=== PATIENT | male | born 1960 | race Caucasian/White ===

== ENCOUNTER → 2017-06-26 | Outpatient (CLI) | payer OTHER, BC ==
--- NOTE | 2017-06-26 15:23 | REP ---
HISTORY: Pain after trauma. COMPARISON: None. FINDINGS: The joint spaces are symmetric and relatively well maintained. There is no evidence of acute fracture or destructive osseous lesion. IMPRESSION: Negative. Signed by Monroe Sanchez DO 06/26/2017 04:49 P
== END ==
LOC: M WUC 12:28
PROVIDERS: ATTEND Physician Assistant
DX: S97.81XA Crushing injury of right foot, initial encounter (principal); Y92.89 Other specified places as the place of occurrence of the external cause; Y99.0 Civilian activity done for income or pay; X58.XXXA Exposure to other specified factors, initial encounter

== ENCOUNTER → 2017-07-01 | Outpatient (CLI) | payer BC ==
[2017-07-01 13:33] LABS: ALBUMIN 4.2 GM/DL (3.2-5.2); ALBUMIN/GLOBULIN RATIO 1.35 (1.00-1.93); ALKALINE PHOSPHATASE 87 U/L (45-117); ALT/SGPT 114 U/L (12-78); ANION GAP 12 MEQ/L (8-16); AST/SGOT 46 U/L (15-37); BILIRUBIN,TOTAL 0.6 MG/DL (0.2-1.0); BLOOD UREA NITROGEN 15 MG/DL (7-18); CARBON DIOXIDE LEVEL 23 MEQ/L (21-32); CHLORIDE LEVEL 103 MEQ/L (98-107); CREATININE FOR GFR 0.95 MG/DL (0.70-1.30); GLOMERULAR FILTRATION RATE > 60.0 (>56); GLUCOSE, FASTING 91 MG/DL (70-105); POTASSIUM SERUM 4.2 MEQ/L (3.5-5.1); SODIUM LEVEL 138 MEQ/L (136-145); TOTAL PROTEIN 7.3 GM/DL (6.4-8.2)
== END ==
LOC: M WUC 09:33
PROVIDERS: ATTEND Internal Medicine Cardiovascular Disease
DX: R94.5 Abnormal results of liver function studies (principal)

== ENCOUNTER 2018-09-03 08:01 | Emergency (ER) | payer OTHER, BC ==
[2018-09-03] MEDS: IBUPROFEN 800 MG TAB PO (09:07)
[2018-09-03] MEDS: NORCO, ANEXSIA 5/325MG TABLET (HYDROcodone/ACETAMINOPHEN) PO (09:08)
[2018-09-03] MEDS: ADACEL/BOOSTRIX VACCINE (DIPHTH/PERTUSS/ACELL/TETANUS)0.5ML SYR (90715) IM (09:09)
== END 2018-09-03 09:20 | disposition home or self-care (01) ==
LOC: M ED 08:01
DX: S40.011A Contusion of right shoulder, initial encounter (principal); W18.09XA Striking against other object with subsequent fall, initial encounter; Y92.89 Other specified places as the place of occurrence of the external cause
CPT/HCPCS: 90715

== ENCOUNTER → 2019-01-19 | Outpatient (REF) | payer OTHER ==
[~2019-01-19] MED LIST: ALLE180T33 PO; ASCO25TA PO; ATOR40TA75; GLUC1CAP9 PO; IBUP80TA PO; LISI10TA4; MULTCAP PO; NORCOTAB PO; OMEP20CA3; RANI1TAB38 PO; ZETI10TA30 PO
[2019-01-19 13:23] LABS: HEMATOCRIT 47.6 % (42.0-52.0); HEMOGLOBIN 16.9 g/dl (13.5-17.5); MEAN CORPUSCULAR HEMOGLOBIN 32.3 pg (27.0-33.0); MEAN CORPUSCULAR HGB CONC 35.5 g/dl (32.0-36.5); MEAN CORPUSCULAR VOLUME 90.8 fl (80.0-96.0); PLATELET COUNT, AUTOMATED 213 10^3/uL (150-450); RED BLOOD COUNT 5.24 10^6/uL (4.30-6.10); WHITE BLOOD COUNT 8.4 10^3/uL (4.0-10.0)
[2019-01-19 13:39] LABS: INR 0.94; PROTHROMBIN TIME 12.7 SECONDS (12.1-14.4)
[2019-01-19 13:40] LABS: PARTIAL THROMBOPLASTIN TIME 26.4 SECONDS (25.4-37.6)
[2019-01-19 13:52] LABS: BLOOD UREA NITROGEN 9 MG/DL (7-18); CALCIUM LEVEL 9.2 MG/DL (8.5-10.1); CARBON DIOXIDE LEVEL 29 MEQ/L (21-32); CHLORIDE LEVEL 99 MEQ/L (98-107); CREATININE FOR GFR 0.88 MG/DL (0.70-1.30); GLOMERULAR FILTRATION RATE > 60.0 (>56); GLUCOSE, FASTING 101 MG/DL (70-100); POTASSIUM SERUM 4.7 MEQ/L (3.5-5.1); SODIUM LEVEL 135 MEQ/L (136-145)
== END ==
LOC: M SFHCPLAZ 11:01
PROVIDERS: ATTEND Physician Assistant
DX: Z01.818 Encounter for other preprocedural examination (principal)

== ENCOUNTER 2019-06-09 17:03 | Inpatient (IN) | payer BC, OTHER ==
[~2019-06-09] VITALS: Ht 175.3 cm; Wt 97.1 kg
[~2019-06-09 17:03] MED LIST changes: -ASCO25TA PO; +HYDR-3715 PO; -LISI10TA4; +LISI10TA4 PO; -NORCOTAB PO; -OMEP20CA3; +OMEP20CA4; +VITA1TAB23 PO
[2019-06-09] MEDS ORDERED: NS 1,000 ML IV SCH (18:00)
[2019-06-09] MEDS ORDERED: OMEP-221 PO (18:10)
[2019-06-09] MEDS ORDERED: CENT1TAB PO (18:10)
[2019-06-09] MEDS ORDERED: ROSU40TA4 PO (18:13)
[2019-06-09] MEDS ORDERED: GARL500C PO (18:13)
[2019-06-09] MEDS ORDERED: IBUP-1091 PO (18:13)
--- NOTE | 2019-06-09 18:40 | REPVR ---
EXAM: US Abdomen Limited, Right Upper Quadrant EXAM DATE/TIME: 06/09/2019 6:17 PM CLINICAL HISTORY: 58 years old, male; Abdominal pain; Epigastric; Additional info: Abd pain elevated bili ? cbd stone TECHNIQUE: Imaging protocol: Real-time ultrasound of the abdomen with image documentation. Examination was focused on the right upper quadrant. COMPARISON: No relevant prior studies available. FINDINGS: Liver: The liver is diffusely echogenic relative to the right kidney, findings consistent with steatosis. Gallbladder: Normal. No gallstones. There is no gallbladder wall thickening. Common bile duct: Common bile that measures 8.1 mm Pancreas: Limited due to overlying bowel gas. Visualized segments of the pancreas are unremarkable. Right kidney: Right kidney measures 11.7 x 5.7 x 5.7 cm. IMPRESSION: 1. Hepatic steatosis. 2. No acute findings. Electronically signed by: Kelby Denson On 06/09/2019 18:39:57 PM
--- NOTE | 2019-06-09 19:36 | ECGEPIP ---
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
[2019-06-09] MEDS ORDERED: DEXTROSE 50% 50 ML SYRINGE IV PRN (20:45)
[2019-06-09] MEDS ORDERED: GLUCOSE 4 GM CHEW TABLET PO PRN (20:45)
[2019-06-09] MEDS ORDERED: GLUCAGON FOR INJ 1 MG VIAL (J1610) SC PRN (20:45)
--- NOTE | 2019-06-09 20:47 | HPEPDOC ---
General Date of Admission 06.09.19 Date of Service: Jun 09, 2019 Chief Complaint The patient is a 58-year-old male admitted with a reason for visit of Abdominal Pain. History of Present Illness 58m with hx of htn, hld, GERD p/w abdominal pain. Pt states he has had this pain in the past. But for the past two days he has had epigastric pain particularly after eating. This has been associated with nausea as well. He saw his PMD today who notes that he was jaundice. Labs were drawn that revealed t bili 8, ast/alt ~ 200, alk phos ~250, glucose ~250. A CT was done as well without any clear pathology but was of low quality as he was unable to raise his right arm. a full ROS was performed and negative except as documented above Home Medications Scheduled Fexofenadine HCl (Lesia Allergy) 180 Mg Tab, 180 MG PO DAILY, (Reported) Garlic (Garlic) 500 Mg Capsule, 1,000 MG PO DAILY, (Reported) Lisinopril (Lisinopril) 10 Mg Tab, 10 MG PO DAILY, (Reported) Multivit-Min/FA/Lycopen/Lutein (Centrum Silver Tablet) 1 Each Tablet, 1 TAB PO D AILY, (Reported) Omeprazole (Omeprazole) 40 Mg Capsule.dr, 40 MG PO DAILY, (Reported) Rosuvastatin Calcium (Rosuvastatin Calcium) 40 Mg Tablet, 40 MG PO DAILY, (Reported) Scheduled PRN Ibuprofen (Ibuprofen) 200 Mg Tablet, 600 MG PO PRN PRN for PAIN, (Reported) Allergies Coded Allergies: No Known Allergies (Unverified , 06/09/19) Past Medical History Medical History as above Surgical History recent shoulder surgery Social History * Smoker: Denies Alcohol: heavy Drugs: denies A-FIB/CHADSVASC A-FIB History Current/History of A-Fib/PAF?: No Current PO Anticoag Therapy: No Age/Risk Factor Scoring CHADSVASC: CHADSVASC Response (Comments) Value Age Risk Factor Age < 65 years old 0 Gender Risk Factor Male 0 Hx of CHF No 0 Hx of HTN Yes 1 Hx of Stroke/TIA/or VTE No 0 Hx of Diabetes No 0 Hx of Vascular Disease No 0 Total 1 Treatment Treatment ordered: NONE Physical Examination General Exam: Positive: Alert, No Acute Distress Eye Exam: Positive: PERRLA, Conjunctiva & lids normal, EOMI; Negative: Sclera icteric ENT Exam: Positive: Atraumatic, Mucous membr. moist/pink, Pharynx Normal Neck Exam: Positive: Supple; Negative: JVD, thyromegaly Chest Exam: Positive: Clear to auscultation, Normal air movement Heart Exam: Positive: Rate Normal, Regular Rhythm, Normal S1, Normal S2; Negative: Murmurs, Rubs Abdomen Exam: Positive: BS Hypoactive, Soft; Negative: Tenderness Extremity Exam: Positive: Normal pulses; Negative: Clubbing, Cyanosis, Edema Skin Exam: Positive: Nl turgor and temperature; Negative: Breakdown, Lesion Neuro Exam: Positive: Normal Gait, Normal Speech, Cranial Nerves 3-12 NL, Reflexes 2+ Psych Exam: Positive: Mental status NL, Mood NL, Oriented x 3 Vital Signs Vital Signs Date Time Temp Pulse Resp B/P (MAP) Pulse Ox O2 Delivery O2 Flow Rate FiO2 06/09/19 19:34 108/80 (89) 06/09/19 17:03 97.5 109 18 97 Room Air Laboratory Data Labs 24H Laboratory Tests 2 06/09/19 18:23: Lipase 709H Assessment/Plan 58m p/w obstructive jaundice and pancreatitis? npo iv fluids no evidence of cholecystitis cbd 8mm possible distal stone? ERCP in am Dr Enamorado aware of case htn lisinopril on hold monitor bps hld continue crestor gerd continue protonix hyperglycemia will check a1c fingersticks and sliding scale in meantime etoh use ciwa protocol Plan / VTE VTE Prophylaxis Ordered?: Yes JOSE RÍOS MD Jun 09, 2019 20:47
[2019-06-09] MEDS ORDERED: LORazepam 2 MG TAB PO PRN (21:00)
[2019-06-09 22:41] VITALS: BP 123/81
[2019-06-09 23:00] VITALS: BP 123/81
[2019-06-09] MEDS: LR 1,000 ML IV SCH (23:09)
[2019-06-10 06:00] VITALS: BP 122/73
[2019-06-10] MEDS: HumaLOG INSULIN (NovoLOG) PER UNIT SC SCH ×4 (06:00→18:00)
[2019-06-10] MEDS: LR 1,000 ML IV SCH ×3 (06:00→09:51)
[2019-06-10 06:29] LABS: HEMATOCRIT 35.8 % (42.0-52.0); HEMOGLOBIN 12.8 g/dl (13.5-17.5); MEAN CORPUSCULAR HEMOGLOBIN 32.6 pg (27.0-33.0); MEAN CORPUSCULAR HGB CONC 35.8 g/dl (32.0-36.5); MEAN CORPUSCULAR VOLUME 91.1 fl (80.0-96.0); PLATELET COUNT, AUTOMATED 162 10^3/uL (150-450); RED BLOOD COUNT 3.93 10^6/uL (4.30-6.10); WHITE BLOOD COUNT 8.4 10^3/uL (4.0-10.0)
[2019-06-10 06:47] LABS: HEMOGLOBIN A1c 9.5 %
[2019-06-10 07:00] VITALS: BP 122/73
[2019-06-10 07:05] LABS: ALBUMIN 2.5 GM/DL (3.2-5.2); ALT/SGPT 279 U/L (12-78); BILIRUBIN,TOTAL 7.1 MG/DL (0.2-1.0); BLOOD UREA NITROGEN 10 MG/DL (7-18); CALCIUM LEVEL 8.1 MG/DL (8.5-10.1); CARBON DIOXIDE LEVEL 28 MEQ/L (21-32); CHLORIDE LEVEL 102 MEQ/L (98-107); CREATININE FOR GFR 0.85 MG/DL (0.70-1.30); GLOMERULAR FILTRATION RATE > 60.0 (>56); GLUCOSE, FASTING 168 MG/DL (70-100); LIPASE 612 U/L (73-393); POTASSIUM SERUM 3.7 MEQ/L (3.5-5.1); SODIUM LEVEL 137 MEQ/L (136-145); TOTAL PROTEIN 6.4 GM/DL (6.4-8.2)
[2019-06-10] MEDS ORDERED: ROSUVASTATIN 10 MG TAB (CRESTOR) PO SCH (09:00)
[2019-06-10] MEDS: PANTOPRAZOLE 40MG INJ (PROTONIX) (C9113) IV SCH (09:24)
[2019-06-10] MEDS: HEPARIN SOD (PORCINE) 5000 UNITS/ML VIAL SC SCH ×2 (09:24→20:10)
[2019-06-10 11:20] LABS: HEPATITIS A ANTIBODY IGM NEGATIVE (NEGATIVE); HEPATITIS B CORE ANTIBODY IGM NEGATIVE (NEGATIVE); HEPATITIS B SURFACE ANTIGEN NEGATIVE (NEGATIVE); HEPATITIS C VIRUS ABY INDEX 0.3 INDEX (<0.8)
[2019-06-10 14:00] VITALS: BP 132/94
--- NOTE | 2019-06-10 18:42 | IPNPDOC ---
Text Note Date of Service The patient was seen on 06/10/19. NOTE Mr. Hernandez is admitted with onset of jaundice. It is accompanied by abdominal d iscomfort and greatly decreased appetite. He also complains of bloating and distention. Question was raised of possible obstructive jaundice, or gallstone pancreatitis. Physical exam Vital signs: Please see below. HEENT: Sclera are anicteric and noninjected, neck is supple with no adenopathy or thyromegaly, I do not note mucosal icterus. Cardiovascular: Regular rate and rhythm with a normal S1 and S2. No appreciable murmur. Respiratory: Generally clear to auscultation with good air movement, no wheezing or cough. Abdomen: Distended, there is some mild epigastric tenderness to palpation, I do not elicit Elliott's sign, bowel tones are present. I do not appreciate a fluid wave consistent with ascites. Extremities: do not show remarkable peripheral edema or lesions. Neuro: Patient does not display any focal neuromotor or sensory deficit, he does not have a tremor. Psych: Patient has a very depressed affect and often states he doesn't know the answer to certain questions such as what are his home medications or how long has he been taking them Skin: Patient does have notable jaundice to his trunk and head and legs ASSESSMENT/PLAN: 1. Jaundice--reported to be obstructive. Ultrasound not quite consistent with duct dilatation or cholecystitis. Case discussed with GI service; will get MRCP before thinking of pursuing ERCP. Patient has been ruled out for acute or chronic hepatitis by serology. CT scan result is consistent with fatty liver disease. We will need to consider alcoholic liver disease/acute alcoholic hepatitis; he has not shown symptoms of alcohol toxicity or withdrawal. I could not elicit from the patient any details regarding his medications, but I have stopped his Crestor and metformin for now in consideration of medication toxicity. 2. Acute pancreatitis--characterized by abdominal pain and elevated lipase. Gallstone pancreatitis is considered. We will await MRCP result. Otherwise, we will continue with conservative management. Patient relates increased discomfort with eating. VS,Fishbone, I+O VS, Fishbone, I+O Laboratory Tests 06/10/19 06:15 Red Blood Count 3.93 L, Mean Corpuscular Volume 91.1, Mean Corpuscular Hemoglobin 32.6, Mean Corpuscular Hemoglobin Concent 35.8, Red Cell Distribution Width 11.7, Calcium Level 8.1 L, Aspartate Amino Transf (AST/SGOT) 264 H, Alanine Aminotransferase (ALT/SGPT) 279 H, Alkaline Phosphatase 170 H, Total Bilirubin 7.1 H, Total Protein 6.4, Albumin 2.5 L Vital Signs Date Time Temp Pulse Resp B/P (MAP) Pulse Ox O2 Delivery O2 Flow Rate FiO2 06/10/19 14:00 98.1 74 17 132/94 (107) 96 06/09/19 21:28 Room Air I&O- Last 24 Hours up to 6 AM 06/10/19 06:00 Intake Total 1450 ml Output Total 300 ml Balance 1150 ml CHAVO HOGAN MD Jun 10, 2019 18:42
[2019-06-10 20:59] LABS: IRON (FE) 79 UG/DL (65-175); PERCENT SATURATION 33.3 % (19.7-50.0); TOTAL IRON BINDING CAPACITY 237 UG/DL (250-450)
--- NOTE | 2019-06-10 21:29 | CR ---
DATE OF CONSULTATION: 06/10/2019 STATUS OF PATIENT: Inpatient. REQUESTING PHYSICIAN: Hospitalist service. REASON FOR CONSULTATION: Jaundice. The patient is a 58-year-old male who was seen by is primary care physician for vague abdominal pain on 06/09/2019 when he was found to have an elevated bilirubin. He was sent for a CT scan of the abdomen and pelvis which was performed at [facility], but I do not have the results. The patient was asked to present to [facility] for further evaluation of his jaundice. The ultrasound on presentation in the emergency room reveals a fatty liver but no other abnormalities, namely his bile duct is normal in size and his gallbladder is free of stones, and it is normal in appearance as well. He did have a total bilirubin of 7.1 with moderate transaminitis. He is also found to have a diminished albumin level and mildly elevated lipase level. The patient was admitted for further evaluation. He currently denies any abdominal pain. No further nausea, and he actually feels okay. He denies any fevers, chills. There is no history of any recent antibiotic, such as penicillins or sulfa medications. All of his baseline medications are the usual medications and nothing new has been recently added. The only recent development was shoulder surgery in January of 2019, but no other surgeries or any unusual events or exposures are noted. PAST MEDICAL HISTORY: Hypertension. Hypercholesterolemia. Gastroesophageal reflux. MEDICATIONS AT HOME: - fexofenadine - lisinopril - omeprazole - rosuvastatin ALLERGIES: No known drug allergies. SOCIAL HISTORY: Positive for at least 2-3 alcoholic beverages per day with at least 5-6 and sometimes more alcoholic beverages on the weekends on a daily basis. He does not consider himself an alcoholic but he does drink daily. Negative for intravenous (IV) drug use. He works for the [employer]. REVIEW OF SYSTEMS: General: Negative for night sweats, fevers or chills. Positive for darkening of his urine for 1 week. Pulmonary: Negative for hemoptysis, pleuritic-type chest pain. Cardiac: Negative for orthopnea, paroxysmal nocturnal dyspnea (PND). Gastrointestinal (GI): As per HPI. Genitourinary (): Negative for hematuria, dysuria. Positive for darkening of urine times 1 week. Neurological: Negative for focal numbness or weakness or gait instability. PHYSICAL EXAMINATION: Temperature 98.1, pulse is 74, respiratory rate 17, blood pressure 132/94, pulse oximetry 96% on room air. General: He is awake, alert and oriented times three, in no acute distress. He is nontoxic in appearance. He is mildly jaundiced. His body habitus is moderately obese. Head, eyes, ears, nose and throat: Grossly without abnormality except for scleral icterus. Neck is supple. No lymphadenopathy, thyromegaly. Chest is clear bilaterally. Heart is regular rate and rhythm, S1, S2. No murmurs or gallops. Abdomen: Mildly tender in the epigastrium and over the liver on deep palpation only. No rebound tenderness. I do not appreciate definite ascites or shifting dullness. No masses are felt. Extremities: Negative for edema. Rectal: Examination has been deferred as per patient's request. LABORATORY WORK: Reveals a WBC 8.4, hemoglobin 12.8, hematocrit 35.8, platelet count is 162. Sodium 137, potassium 3.7, chloride 102, BUN 10, creatinine 0.85, glucose 168, total bilirubin 7.1, AST is 264, ALT 279, alkaline phosphatase 170, albumin 2.5, lipase 612. IMAGIN06/09/2019 gallbladder ultrasound; Impression: 1. Hepatic steatosis. 2. No acute findings. 3. The liver is diffusely echogenic relative to the right kidney. Findings are consistent with steatosis. The gallbladder is normal. No gallstones are seen. There is no gallbladder wall thickening. Common bile duct is measured at 8.1 mm. Visualized segments of the pancreas are unremarkable. 06/10/2019 Magnetic resonance cholangiopancreatography (MRCP): 1. There is no biliary ductal dilatation. Bile duct is measured between 5 and 6 mm at maximum. There are no gallstones seen in his gallbladder. Gallbladder is normal in appearance. The pancreas and pancreatic ducts are both normal. Impression: 1. Mixed pattern abnormal liver enzymes with moderate transaminitis intrahepatic cholestasis. Differenial includes meds/alcohol/toxic, immune/idiosyncratic, infectious RECOMMENDATIONS: 1. Check BENJI, AMA, ANCA, anti-LKM antibody, iron and ceruloplasmin, as well as hemochromatosis panel. I see that his viral hepatitis A, B, C panel is negative. would add EBV 2. I would also recommend that we do a CT abdomen and pelvis with IV and oral contrast to assess portal vasculature and r/o other anatomic causes. 3. Monitor Coags daily along with LFT MTDD
[2019-06-10 22:00] VITALS: BP 134/81
[2019-06-11] MEDS: LR 1,000 ML IV SCH ×5 (02:01→22:30)
[2019-06-11] MEDS: GASTROGRAFIN SOLUTION 30ML (Q9963) PO SCH ×2 (04:46→05:18)
[2019-06-11 06:00] VITALS: BP 140/73
[2019-06-11 06:03] LABS: INR 1.1; PROTHROMBIN TIME 13.9 SECONDS (11.8-14.0)
[2019-06-11 06:17] LABS: ALBUMIN 2.7 GM/DL (3.2-5.2); ALT/SGPT 313 U/L (12-78); BILIRUBIN,DIRECT 6.8 MG/DL (0.0-0.2); BILIRUBIN,TOTAL 8.9 MG/DL (0.2-1.0); BLOOD UREA NITROGEN 7 MG/DL (7-18); CALCIUM LEVEL 8.7 MG/DL (8.5-10.1); CARBON DIOXIDE LEVEL 29 MEQ/L (21-32); CHLORIDE LEVEL 104 MEQ/L (98-107); CREATININE FOR GFR 0.77 MG/DL (0.70-1.30); GAMMA GLUTAMYLTRANSPEPTIDASE 996 U/L (15-85); GLOMERULAR FILTRATION RATE > 60.0 (>56); GLUCOSE, FASTING 130 MG/DL (70-100); LIPASE 480 U/L (73-393); POTASSIUM SERUM 3.8 MEQ/L (3.5-5.1); SODIUM LEVEL 138 MEQ/L (136-145); TOTAL PROTEIN 6.2 GM/DL (6.4-8.2)
--- NOTE | 2019-06-11 08:09 | REP ---
MRCP examination: History: Rule out obstructive jaundice. Technique: Axial and coronal T2-weighted scans were obtained. MRCP exam is acquired and maximal intensity projection images are generated and viewed rotationally. MRCP findings: There is no evidence of intrahepatic biliary ductal dilation. The common bile duct measures 0.6 cm in greatest diameter on MRCP images. No biliary stricture is seen. Pancreatic duct is normal in caliber and appearance. No filling defect is seen in the gallbladder lumen. No pancreatic lesion is seen. There is no evidence of choledocholithiasis. Impression: Negative MRCP exam. Electronically Signed by Abdoulaye Johnston MD 06/11/2019 12:00 P
[2019-06-11] MEDS: PANTOPRAZOLE 40MG INJ (PROTONIX) (C9113) IV SCH (08:17)
[2019-06-11] MEDS: HEPARIN SOD (PORCINE) 5000 UNITS/ML VIAL SC SCH ×2 (08:18→20:15)
[2019-06-11] MEDS: HumaLOG INSULIN (NovoLOG) PER UNIT SC SCH ×4 (08:18→20:21)
--- NOTE | 2019-06-11 08:29 | REPVR ---
EXAM: CT Abdomen With Contrast EXAM DATE/TIME: 06/11/2019 5:59 AM CLINICAL HISTORY: 58 years old, male; Condition or disease; Liver condition; Other: Jaundice; Additional info: Eval portal vessels, jaundice, liver disease TECHNIQUE: Imaging protocol: Axial computed tomography images of the abdomen with intravenous contrast. Coronal and sagittal reformatted images were created and reviewed. Radiation optimization: All CT scans at this facility use at least one of these dose optimization techniques: automated exposure control; mA and/or kV adjustment per patient size (includes targeted exams where dose is matched to clinical indication); or iterative reconstruction. Contrast material: ISOVUE 370; Contrast volume: 100 ml; Contrast route: IV; COMPARISON: GALLBLADDER US 06/09/2019 6:00 PM FINDINGS: Lungs: There is mild atelectasis/scarring at the lung bases. Liver: The liver is fatty in density. It appears otherwise unremarkable. The portal and hepatic veins appear patent, as does the hepatic artery. This is a non-angiographic exam. Gallbladder and bile ducts: No gallstones are evident, but ultrasound would be more sensitive. No gross biliary ductal dilatation. Pancreas: Normal. No ductal dilation. Spleen: Normal. No splenomegaly. Adrenals: Normal. No mass. Kidneys and ureters: Normal. No hydronephrosis. Stomach and bowel: The small bowel is not obstructed. There is minor descending colonic diverticulosis without evidence for diverticulitis. The visualized large bowel is otherwise grossly unremarkable in appearance. Appendix: The appendix appears normal where at least partially visualized, and there is no inflammatory change in the region. Intraperitoneal space: Unremarkable. No free air. No significant fluid collection. Lymph nodes: Unremarkable. No enlarged lymph nodes. Vasculature: Coronary artery calcifications are noted. The abdominal aorta is nonaneurysmal. The left renal vein is noted to be retroaortic. Bones/joints: Degenerative changes involve the spine. Soft tissues: Unremarkable. IMPRESSION: 1. Fatty liver. 2. Patent portal and hepatic veins and hepatic artery. May consider Doppler interrogation for more detailed assessment. 3. Minor descending colonic diverticulosis without evidence for diverticulitis. Electronically signed by: José Hu On 06/11/2019 08:29:12 AM
[2019-06-11 14:00] VITALS: BP 138/60
--- NOTE | 2019-06-11 19:28 | IPNPDOC ---
Text Note Date of Service The patient was seen on 06/11/19. NOTE Mr. Bassett was admitted with onset of jaundice. He still complains of bloating and distention. He has mild abdominal pain and decreased appetite. The etiology of his jaundice is as yet unclear. Physical exam Vital signs: Please see below. HEENT: Sclera are anicteric and noninjected, neck is supple with no adenopathy or thyromegaly, I do not note mucosal icterus. Cardiovascular: Regular rate and rhythm with a normal S1 and S2. No appreciable murmur. Respiratory: Generally clear to auscultation with good air movement, no wheezing or cough. Abdomen: Distended, there is some mild epigastric tenderness to palpation, I do not elicit Elliott's sign, bowel tones are present. I do not appreciate a fluid wave consistent with ascites. Extremities: do not show remarkable peripheral edema or lesions. Neuro: Patient does not display any focal neuromotor or sensory deficit, he does not have a tremor. Psych: Patient has a very depressed affect Skin: Patient does have notable jaundice to his trunk and head and legs Radiologic review: Both CT scan with contrast and abdominal MRI show fatty liver. There is no finding of obstruction to the portal or hepatic veins or to the ducts. Laboratory review: See also below GGT is quite elevated at 996. AST and ALTs remain elevated and increased it to 98 and 313, respectively. Bilirubin has increased slightly to 8.9. There has been a decrease in lipase down to 480. ASSESSMENT/PLAN: 1. Jaundice--reported to be obstructive. Ultrasound not quite consistent with duct dilatation or cholecystitis. Case discussed with GI service; MRCP and CT scan with contrast do not show any obstruction to vessels or ducts. Patient has been ruled out for acute or chronic hepatitis by serology. CT scan result is consistent with fatty liver disease. We will need to consider alcoholic liver disease/acute alcoholic hepatitis; he has not shown symptoms of alcohol toxicity or withdrawal. I could not elicit from the patient any details regarding his medications, but I have stopped his Crestor and metformin for now in consideration of medication toxicity. 2. Acute pancreatitis--characterized by abdominal pain and elevated lipase. Gallstone pancreatitis is considered. MRCP is negative. We will continue with conservative management. Patient relates increased discomfort with eating. VS,Fishbone, I+O VS, Fishbone, I+O Laboratory Tests 06/11/19 05:32 Calcium Level 8.7, Aspartate Amino Transf (AST/SGOT) 298 H, Alanine Aminotransferase (ALT/SGPT) 313 H, Alkaline Phosphatase 179 H, Total Bilirubin 8.9 H, Direct Bilirubin 6.8 H, Total Protein 6.2 L, Albumin 2.7 L Vital Signs Date Time Temp Pulse Resp B/P (MAP) Pulse Ox O2 Delivery O2 Flow Rate FiO2 06/11/19 14:00 97.4 70 19 138/60 (86) 100 06/09/19 21:28 Room Air I&O- Last 24 Hours up to 6 AM 06/11/19 06:00 Intake Total 3600 ml Output Total 1000 ml Balance 2600 ml CHAVO HOGAN MD Jun 11, 2019 19:28
[2019-06-11 20:23] LABS: MONO REFLEX EBV COMP NEGATIVE (NEGATIVE)
[2019-06-11 22:00] VITALS: BP 145/77
[2019-06-12] MEDS: LR 1,000 ML IV SCH (05:16)
[2019-06-12 06:00] VITALS: BP 136/83
[2019-06-12 06:39] LABS: INR 1.16; PROTHROMBIN TIME 14.5 SECONDS (11.8-14.0)
[2019-06-12 06:53] LABS: ALBUMIN 2.4 GM/DL (3.2-5.2); ALT/SGPT 221 U/L (12-78); BILIRUBIN,TOTAL 5.7 MG/DL (0.2-1.0); BLOOD UREA NITROGEN 5 MG/DL (7-18); CALCIUM LEVEL 8.2 MG/DL (8.5-10.1); CARBON DIOXIDE LEVEL 31 MEQ/L (21-32); CHLORIDE LEVEL 108 MEQ/L (98-107); CREATININE FOR GFR 0.73 MG/DL (0.70-1.30); GLOMERULAR FILTRATION RATE > 60.0 (>56); GLUCOSE, FASTING 129 MG/DL (70-100); LIPASE 441 U/L (73-393); POTASSIUM SERUM 3.7 MEQ/L (3.5-5.1); SODIUM LEVEL 143 MEQ/L (136-145); TOTAL PROTEIN 5.7 GM/DL (6.4-8.2)
[2019-06-12] MEDS: HEPARIN SOD (PORCINE) 5000 UNITS/ML VIAL SC SCH ×2 (07:50→21:19)
[2019-06-12] MEDS: PANTOPRAZOLE 40MG INJ (PROTONIX) (C9113) IV SCH (07:50)
[2019-06-12] MEDS: HumaLOG INSULIN (NovoLOG) PER UNIT SC SCH ×4 (07:51→21:00)
[2019-06-12] MEDS ORDERED: IBUPROFEN 400 MG TAB PO PRN (10:30)
[2019-06-12 14:00] VITALS: BP 140/92
--- NOTE | 2019-06-12 17:08 | IPNPDOC ---
Text Note Date of Service The patient was seen on 06/12/19. NOTE This is a 58-year-old male admitted with elevated liver enzymes and jaundice of unclear etiology. He is starting to show some clinical improvement; he is now starting to tolerate an oral diet without discomfort. Physical exam Vital signs: Please see below. HEENT: Sclera are anicteric and noninjected, neck is supple with no adenopathy or thyromegaly, I do not note mucosal icterus. Cardiovascular: Regular rate and rhythm with a normal S1 and S2. No appreciable murmur. Respiratory: Generally clear to auscultation with good air movement, no wheezing or cough. Abdomen: Distended, there is some mild epigastric tenderness to palpation, I do not elicit Elliott's sign, bowel tones are present. I do not appreciate a fluid wave consistent with ascites. Extremities: do not show remarkable peripheral edema or lesions. Neuro: Patient does not display any focal neuromotor or sensory deficit, he does not have a tremor. Psych: Patient has a very depressed affect Skin: Patient has decreased jaundice to his trunk and head and legs Laboratory review: please also see below Lipase is 441 today. AST is decreased to 167, ALP is 221. Bilirubin is now decreased to 5.7. There is also glycated hemoglobin of 9.5. ASSESSMENT/PLAN: 1. Jaundice--etiology is still unclear, but patient is improving. Reported to be obstructive. Ultrasound not quite consistent with duct dilatation or cholecystitis. Case discussed with GI service; MRCP and CT scan with contrast do not show any obstruction to vessels or ducts. Patient has been ruled out for acute or chronic hepatitis by serology. CT scan result is consistent with fatty liver disease. We will need to consider alcoho lic liver disease/acute alcoholic hepatitis; he has not shown symptoms of alcohol toxicity or withdrawal. I could not elicit from the patient any details regarding his medications, but I have stopped his Crestor and metformin for now in consideration of medication toxicity. Appreciate assistance and input from the GI service. 2. Acute pancreatitis--characterized by abdominal pain and elevated lipase. MRCP is negative. We will continue with conservative management. Patient appetite and tolerance of diet is improving. 3. Rue-jwsfdom-rylghodsk diabetes mellitus--this is a new diagnosis for the patient based on his glycated hemoglobin of 9.5. Patient will need education regarding glucose management, weight loss and lifestyle changes. VS,Delores, I+O VS, Fishbone, I+O Laboratory Tests 06/12/19 05:59 Calcium Level 8.2 L, Aspartate Amino Transf (AST/SGOT) 167 H, Alanine Aminotransferase (ALT/SGPT) 221 H, Alkaline Phosphatase 179 H, Total Bilirubin 5.7 H, Total Protein 5.7 L, Albumin 2.4 L Vital Signs Date Time Temp Pulse Resp B/P (MAP) Pulse Ox O2 Delivery O2 Flow Rate FiO2 06/12/19 14:00 97.6 80 19 140/92 (108) 100 06/09/19 21:28 Room Air I&O- Last 24 Hours up to 6 AM 06/12/19 05:59 Intake Total 5440 ml Output Total 1200 ml Balance 4240 ml CHAVO HOGAN MD Jun 12, 2019 17:08
[2019-06-13 06:00] VITALS: BP 145/87
[2019-06-13 06:13] LABS: INR 1.17; PROTHROMBIN TIME 14.6 SECONDS (11.8-14.0)
[2019-06-13 06:36] LABS: ALBUMIN 2.3 GM/DL (3.2-5.2); ALT/SGPT 229 U/L (12-78); BILIRUBIN,TOTAL 4.2 MG/DL (0.2-1.0); BLOOD UREA NITROGEN 5 MG/DL (7-18); CALCIUM LEVEL 8.5 MG/DL (8.5-10.1); CARBON DIOXIDE LEVEL 28 MEQ/L (21-32); CHLORIDE LEVEL 107 MEQ/L (98-107); CREATININE FOR GFR 0.68 MG/DL (0.70-1.30); GLOMERULAR FILTRATION RATE > 60.0 (>56); GLUCOSE, FASTING 129 MG/DL (70-100); LIPASE 321 U/L (73-393); POTASSIUM SERUM 3.7 MEQ/L (3.5-5.1); SODIUM LEVEL 142 MEQ/L (136-145); TOTAL PROTEIN 6.1 GM/DL (6.4-8.2)
[2019-06-13] MEDS: PANTOPRAZOLE 40MG INJ (PROTONIX) (C9113) IV SCH (08:20)
[2019-06-13] MEDS: HEPARIN SOD (PORCINE) 5000 UNITS/ML VIAL SC SCH ×2 (08:21→20:53)
[2019-06-13] MEDS: HumaLOG INSULIN (NovoLOG) PER UNIT SC SCH ×4 (08:22→20:47)
[2019-06-13 14:00] VITALS: BP 148/88
--- NOTE | 2019-06-13 19:04 | IPNPDOC ---
Text Note Date of Service The patient was seen on 06/13/19. NOTE This is a 58-year-old male admitted with elevated liver enzymes, pancreatitis and jaundice of unclear etiology. He is starting to show some clinical improvement; he is now starting to tolerate an oral diet without discomfort. He is also found to have a new diagnosis of [id number] diabetes mellitus. Physical exam Vital signs: Please see below. HEENT: Sclera are anicteric and noninjected, neck is supple with no adenopathy or thyromegaly, I do not note mucosal icterus. Cardiovascular: Regular rate and rhythm with a normal S1 and S2. No appreciable murmur. Respiratory: Generally clear to auscultation with good air movement, no wheezing or cough. Abdomen: Mildly distended, there is some mild epigastric tenderness to palpation, I do not elicit Elliott's sign, bowel tones are present. I do not appreciate a fluid wave consistent with ascites. Extremities: do not show remarkable peripheral edema or lesions. Neuro: Patient does not display any focal neuromotor or sensory deficit, he does not have a tremor. Psych: Patient has a very depressed affect Skin: Patient has decreased jaundice to his trunk and head and legs Laboratory review: please also see below Lipase is normalized to 321. AST is 195, ALT is 229. Bilirubin is now decreased to 4.2. Pending studies include hemachromatosis DNA, EBV panel, BENJI screen, p- ANCA and c-ANCA antibody, antimitochondrial antibody, liver/kidney microsomal titer, tissue trans-glutaminase IgA antibody ASSESSMENT/PLAN: 1. Jaundice--etiology is still unclear, but patient is improving. Reported to be obstructive. Ultrasound not quite consistent with duct dilatation or cholecystitis. Case discussed with GI service; MRCP and CT scan with contrast do not show any obstruction to vessels or ducts. Patient has been ruled out for acute or chronic hepatitis by serology. CT scan result is consistent with fatty liver disease. We will need to consider alcoholic liver disease/acute alcoholic hepatitis; he has not shown symptoms of alcohol toxicity or withdrawal. I could not elicit from the patient any details regarding his medications, but I have stopped his Crestor and metformin for now in consideration of medication toxicity. Appreciate assistance and input from the GI service. 2. Acute pancreatitis--characterized by abdominal pain and elevated lipase. MRCP is negative. We will continue with conservative management. Patient appetite and tolerance of diet is improving. 3. Qbe-krkfxgl-rtvghkqrg diabetes mellitus--this is a new diagnosis for the patient based on his glycated hemoglobin of 9.5. Patient will need education regarding glucose management, weight loss and lifestyle changes. I have also requested a dietary consult. Recommend starting him on an oral agent; I have started glipizide as it does not have significant hepatic effects. VS,Fishbone, I+O VS, Fishbone, I+O Laboratory Tests 06/13/19 05:36 Calcium Level 8.5, Aspartate Amino Transf (AST/SGOT) 195 H, Alanine Aminotransferase (ALT/SGPT) 229 H, Alkaline Phosphatase 173 H, Total Bilirubin 4.2 H, Total Protein 6.1 L, Albumin 2.3 L Vital Signs Date Time Temp Pulse Resp B/P (MAP) Pulse Ox O2 Delivery O2 Flow Rate FiO2 06/13/19 14:00 96.8 67 20 148/88 (108) 97 06/09/19 21:28 Room Air I&O- Last 24 Hours up to 6 AM 06/13/19 06:00 Intake Total 3900 ml Output Total 1000 ml Balance 2900 ml CHAVO HOGAN MD Jun 13, 2019 19:04
[2019-06-13 22:00] VITALS: BP 142/91
[2019-06-13 22:19] VITALS: BP 142/82
[2019-06-14 06:00] VITALS: BP 149/90
[2019-06-14 06:04] LABS: ALBUMIN 2.3 GM/DL (3.2-5.2); ALT/SGPT 243 U/L (12-78); BILIRUBIN,TOTAL 3.8 MG/DL (0.2-1.0); BLOOD UREA NITROGEN 5 MG/DL (7-18); CALCIUM LEVEL 8.3 MG/DL (8.5-10.1); CARBON DIOXIDE LEVEL 31 MEQ/L (21-32); CHLORIDE LEVEL 106 MEQ/L (98-107); CREATININE FOR GFR 0.72 MG/DL (0.70-1.30); GLOMERULAR FILTRATION RATE > 60.0 (>56); GLUCOSE, FASTING 126 MG/DL (70-100); POTASSIUM SERUM 3.6 MEQ/L (3.5-5.1); SODIUM LEVEL 142 MEQ/L (136-145)
[2019-06-14 06:05] LABS: INR 1.13; PROTHROMBIN TIME 14.2 SECONDS (11.8-14.0)
[2019-06-14] MEDS: HumaLOG INSULIN (NovoLOG) PER UNIT SC SCH ×4 (08:22→20:31)
[2019-06-14] MEDS: glipiZIDE (GLUCOTROL) 5 MG TAB PO SCH (08:23)
[2019-06-14] MEDS: HEPARIN SOD (PORCINE) 5000 UNITS/ML VIAL SC SCH ×2 (08:23→20:02)
[2019-06-14] MEDS: PANTOPRAZOLE 40MG INJ (PROTONIX) (C9113) IV SCH (09:00)
[2019-06-14] MEDS ORDERED: METF500T13 PO (10:00)
[2019-06-14] MEDS ORDERED: GLIP5TAB8 PO (10:00)
[2019-06-14] MEDS ORDERED: GLUC1TES2 XX (11:01)
[2019-06-14] MEDS ORDERED: ALCOPAD25 TOP (11:01)
[2019-06-14] MEDS ORDERED: BLOOKIT21 XX (11:01)
[2019-06-14] MEDS ORDERED: LANC30MI XX (11:01)
[2019-06-14] MEDS: OMEPRAZOLE 20 MG CAP PO SCH (13:23)
[2019-06-14 14:00] VITALS: BP 141/92
--- NOTE | 2019-06-14 17:17 | IPNPDOC ---
Text Note Date of Service The patient was seen on 06/14/19. NOTE Subjective: Patient was seen and examined at the bedside. Currently patient has no complaints. Denies nausea, vomiting, abdominal pain, constipation, diarrhea, or urinary discomfort. Patient does report that his skin color has improved significantly. Denies any chest pain, short of breath or palpitations. Objective: Vitals (See below) General: Lying in bed, no acute distress, comfortable, AAOx3 HEENT: NC, AT CVS: +S1S2 Lungs: Fair air entry b/l, -w/r/r Abdomen: Soft, ND, NT Extremities: Trace/1+ pitting edema bilaterally, - Calf tenderness Assessment and plan: Jaundice - likely 2/2 hepatitis - etiology still unclear, possibly 2/2 ETOH, possibly 2/2 autoimmune, possibly 2/2 infectious etiology - Presented to the emergency room with complaints of skin color changes - Lab work initially had revealed significant elevation of AST and ALT; this has been downtrending - Hepatitis panel negative, mono screen negative, EBV serology is pending, autoimmune workup remains pending - Gall bladder US 06/09: 1. Hepatic steatosis. 2. No acute findings. - Abdomen MRI 06/10: Negative MRCP exam. - Abdomen CT 06/11: 1. Fatty liver. 2. Patent portal and hepatic veins and hepatic artery. May consider Doppler interrogation for more detailed assessment. 3. Minor descending colonic diverticulosis without evidence for diverticulitis. - Gastroenterology on consult; appreciate their input Early pancreatitis findings - Patient had 1 of 3 criteria for pancreatis; requires all 3 for diagnosis - Lipase not elevated at 2 times the upper limit of normal - Improving NIDDM2 - A1c of 9.5 - Has been started on Glyburide - c/w ISS while inpatient - Avoid metformin given elevation of Liver enzymes GI prophylaxis - c/w Omeprazole DVT prophylaxis - c/w Heparin VS,Fishbone, I+O VS, Fishbone, I+O Laboratory Tests 06/14/19 05:25 Calcium Level 8.3 L, Aspartate Amino Transf (AST/SGOT) 242 H, Alanine Aminotransferase (ALT/SGPT) 243 H, Alkaline Phosphatase 174 H, Total Bilirubin 3.8 H, Total Protein 6.0 L, Albumin 2.3 L Vital Signs Date Time Temp Pulse Resp B/P (MAP) Pulse Ox O2 Delivery O2 Flow Rate FiO2 06/14/19 14:00 96.7 78 19 141/92 (108) 97 06/09/19 21:28 Room Air I&O- Last 24 Hours up to 6 AM 06/14/19 06:00 Intake Total 3460 ml Output Total 0 ml Balance 3460 ml QUINTIN LINARES MD Jun 14, 2019 17:17
[2019-06-14 22:00] VITALS: BP 134/86
[2019-06-15 00:06] LABS: EBV VIRAL CAPSID AG IgM <36.0 U/mL (0.0-35.9)
[2019-06-15 06:00] VITALS: BP 135/87
[2019-06-15 06:43] LABS: INR 1.19; PROTHROMBIN TIME 14.8 SECONDS (11.8-14.0)
[2019-06-15] MEDS: HumaLOG INSULIN (NovoLOG) PER UNIT SC SCH ×2 (07:30→11:39)
[2019-06-15 08:16] LABS: BASO % 0.3 % (0.0-1.0); EOS # 0.1 10^3/uL (0.0-0.50); HEMOGLOBIN 12.2 g/dl (13.5-17.5); LYMPH # 1.9 10^3/uL (1.5-4.5); LYMPH % 31.3 % (24.0-44.0); MEAN CORPUSCULAR HEMOGLOBIN 33.8 pg (27.0-33.0); MEAN CORPUSCULAR HGB CONC 34.9 g/dl (32.0-36.5); MONO # 0.6 10^3/uL (0.0-0.8); NEUTROPHILS # 3.4 10^3/uL (1.8-7.7); NEUTROPHILS % 55.9 % (36.0-66.0); PLATELET COUNT, AUTOMATED 167 10^3/uL (150-450); RED BLOOD COUNT 3.61 10^6/uL (4.30-6.10); WHITE BLOOD COUNT 6.1 10^3/uL (4.0-10.0)
[2019-06-15 08:27] LABS: ALBUMIN 2.5 GM/DL (3.2-5.2); ALT/SGPT 301 U/L (12-78); BILIRUBIN,TOTAL 3.7 MG/DL (0.2-1.0); BLOOD UREA NITROGEN 6 MG/DL (7-18); CALCIUM LEVEL 8.3 MG/DL (8.5-10.1); CARBON DIOXIDE LEVEL 29 MEQ/L (21-32); CHLORIDE LEVEL 107 MEQ/L (98-107); CREATININE FOR GFR 0.69 MG/DL (0.70-1.30); GLOMERULAR FILTRATION RATE > 60.0 (>56); GLUCOSE, FASTING 106 MG/DL (70-100); MAGNESIUM LEVEL 1.7 MG/DL (1.8-2.4); POTASSIUM SERUM 3.7 MEQ/L (3.5-5.1); SODIUM LEVEL 142 MEQ/L (136-145)
[2019-06-15] MEDS: glipiZIDE (GLUCOTROL) 5 MG TAB PO SCH (08:54)
[2019-06-15] MEDS: OMEPRAZOLE 20 MG CAP PO SCH (08:54)
[2019-06-15] MEDS: HEPARIN SOD (PORCINE) 5000 UNITS/ML VIAL SC SCH (09:00)
--- NOTE | 2019-06-15 13:59 | DS.PDOC ---
Discharge Summary General Date of Admission Jun 09, 2019 at 20:30 Date of Discharge 06/15/2019 Discharge Summary PROCEDURES PERFORMED DURING STAY: [None]. ADMITTING DIAGNOSES / DISCHARGE DIAGNOSES: Jaundice - likely 2/2 hepatitis - etiology still unclear, possibly 2/2 ETOH, possibly 2/2 autoimmune, possibly 2/2 infectious etiology Early pancreatitis findings NIDDM2 GI prophylaxis DVT prophylaxis COMPLICATIONS/CHIEF COMPLAINT: Jaundice HISTORY OF PRESENT ILLNESS: Patient is a 58-year-old male with a past medical history of hypertension, dyslipidemia, GERD who presented with abdominal pain and jaundice. Patient had lab work that revealed an elevation of his total bilirubin, as well as his AST/ALT. Patient was admitted to hospitalist service for further evaluation and treatment. Gastroenterology was called on consultation. HOSPITAL COURSE: Jaundice - likely 2/2 hepatitis - etiology still unclear, possibly 2/2 ETOH, possibly 2/2 autoimmune, possibly 2/2 infectious etiology - Presented to the emergency room with complaints of skin color changes - Lab work with elevation of AST and ALT; Bilirubin has trended down - Hepatitis panel negative, mono screen negative, EBV serology is pending, autoimmune workup remains pending - Gall bladder US 06/09: 1. Hepatic steatosis. 2. No acute findings. - Abdomen MRI 06/10: Negative MRCP exam. - Abdomen CT 06/11: 1. Fatty liver. 2. Patent portal and hepatic veins and hepatic artery. May consider Doppler interrogation for more detailed assessment. 3. Minor descending colonic diverticulosis without evidence for diverticulitis. - Gastroenterology on consult; appreciate their input; will have outpatient follow up within 1-2 weeks - Advised alcohol cessation completely Early pancreatitis findings - Patient had 1 of 3 criteria for pancreatis; requires all 3 for diagnosis - Lipase not elevated at 2 times the upper limit of normal - Improving NIDDM2 - A1c of 9.5 - c/w Glyburide as an outpatient - c/w ISS while inpatient - Avoid metformin given elevation of Liver enzymes GI prophylaxis - c/w Omeprazole DVT prophylaxis - c/w Heparin DISCHARGE MEDICATIONS: Please see below. ALLERGIES: Please see below. PHYSICAL EXAMINATION ON DISCHARGE: Vitals (See below) General: Lying in bed, no acute distress, comfortable, AAOx3 HEENT: NC, AT CVS: +S1S2 Lungs: Fair air entry b/l, no wheezing / rhonchi / rales Abdomen: Soft, ND, non-tender Extremities: no evidence of edema, - Calf tenderness LABORATORY DATA: Please see below. ACTIVITY: [As tolerated]. DISCHARGE PLAN: Follow up with Dr. Randolph and Dr. Enamorado within 7 days Remain compliant with treatment plan and medications Return to the ER if you experience any problems DISPOSITION: Home, Self-Care. DISCHARGE CONDITION: [Stable]. TIME SPENT ON DISCHARGE: 35 minutes Vital Signs/I&Os Vital Signs Date Time Temp Pulse Resp B/P (MAP) Pulse Ox O2 Delivery O2 Flow Rate FiO2 06/15/19 06:00 96.6 81 16 135/87 (103) 98 06/09/19 21:28 Room Air I&O- Last 24 Hours up to 6 AM 06/15/19 06:00 Intake Total 1790 ml Balance 1790 ml Laboratory Data Labs 24H Laboratory Tests 2 06/14/19 16:26: Bedside Glucose (Misc Panel) 175H 06/14/19 20:27: Bedside Glucose (Misc Panel) 81 06/15/19 05:32: Immature Granulocyte % (Auto) 0.5, White Blood Count 6.1, Red Blood Count 3.61L, Hemoglobin 12.2L, Hematocrit 35.0L, Mean Corpuscular Volume 97.0H, Mean Corpuscular Hemoglobin 33.8H, Mean Corpuscular Hemoglobin Concent 34.9, Red Cell Distribution Width 12.4, Platelet Count 167, Neutrophils (%) (Auto) 55.9, Lymphocytes (%) (Auto) 31.3, Monocytes (%) (Auto) 10.0H, Eosinophils (%) (Auto) 2.0, Basophils (%) (Auto) 0.3, Neutrophils # (Auto) 3.4, Lymphocytes # (Auto) 1.9, Monocytes # (Auto) 0.6, Eosinophils # (Auto) 0.1, Basophils # (Auto) 0.0, Nucleated Red Blood Cells % (auto) 0.0, Anion Gap 6L, Glomerular Filtration Rate > 60.0, Blood Urea Nitrogen 6L, Creatinine 0.69L, Sodium Level 142, Potassium Level 3.7, Chloride Level 107, Carbon Dioxide Level 29, Calcium Level 8.3L, Aspa rtate Amino Transf (AST/SGOT) 325H, Alanine Aminotransferase (ALT/SGPT) 301H, Alkaline Phosphatase 180H, Total Bilirubin 3.7H, Total Protein 6.0L, Albumin 2.5L, Magnesium Level 1.7L, Albumin/Globulin Ratio 0.71L 06/15/19 05:34: Prothrombin Time 14.8H, Prothromb Time International Ratio 1.19 06/15/19 06:33: Bedside Glucose (Misc Panel) 107H 06/15/19 11:36: Bedside Glucose (Misc Panel) 90 CBC/BMP Laboratory Tests 06/15/19 05:32 Red Blood Count 3.61 L, Mean Corpuscular Volume 97.0 H, Mean Corpuscular Hemoglobin 33.8 H, Mean Corpuscular Hemoglobin Concent 34.9, Red Cell Distribution Width 12.4, Neutrophils (%) (Auto) 55.9, Lymphocytes (%) (Auto) 31.3, Monocytes (%) (Auto) 10.0 H, Eosinophils (%) (Auto) 2.0, Basophils (%) (Auto) 0.3, Neutrophils # (Auto) 3.4, Lymphocytes # (Auto) 1.9, Monocytes # (Auto) 0.6, Eosinophils # (Auto) 0.1, Basophils # (Auto) 0.0, Calcium Level 8.3 L, Aspartate Amino Transf (AST/SGOT) 325 H, Alanine Aminotransferase (ALT/SGPT) 301 H, Alkaline Phosphatase 180 H, Total Bilirubin 3.7 H, Total Protein 6.0 L, Albumin 2.5 L FSBS Laboratory Tests Test 06/14/19 16:26 06/14/19 20:27 06/15/19 06:33 06/15/19 11:36 Range/Units Bedside Glucose (Misc Panel) 175 81 107 90 70-105 MG/DL Discharge Medications Scheduled Blood Sugar Diagnostic (Advanced Glucose Test Strips) 1 Each Strip, 1 STRIP XX ASDIRECTED Fexofenadine HCl (Lesia Allergy) 180 Mg Tab, 180 MG PO DAILY, (Reported) Glipizide (Glipizide) 5 Mg Tablet, 5 MG PO DAILY@0730 Multivit-Min/FA/Lycopen/Lutein (Centrum Silver Tablet) 1 Each Tablet, 1 TAB PO DAILY, (Reported) Omeprazole (Omeprazole) 40 Mg Capsule.dr, 40 MG PO DAILY, (Reported) Rosuvastatin Calcium (Rosuvastatin Calcium) 40 Mg Tablet, 40 MG PO DAILY, (Reported) Allergies Coded Allergies: No Known Allergies (Unverified , 06/09/19) QUINTIN LINARES MD Jun 15, 2019 13:59
[2019-06-21 00:06] LABS: ANCA-ATYPICAL <1:20 titer (Neg:<1:20); ANTI-MITOCHONDRIAL ANTIBODY <20.0 Units (0.0-20.0); ANTINUCLEAR ANTIBODIES DIRECT Negative (Negative); CERULOPLASMIN 23.6 mg/dL (16.0-31.0); CYTOPLASMIC NEUTROP AB ANCA-C <1:20 titer (Neg:<1:20); LIVER-KIDNEY MICROSOMAL ABY <20.1 Units (0.0-20.0); PERINUCLEAR AB ANCA-P <1:20 titer (Neg:<1:20); TISSUE TRANSGLUTAMINASE IgA <2 U/mL (0-3)
== END 2019-06-15 13:22 | disposition home or self-care (01) ==
LOC: M ED 17:03 → M ED INP 20:30 → M MSPAV 22:30
PROVIDERS: ADMIT Hospitalist; ATTEND Internal Medicine
DX: K75.9 Inflammatory liver disease, unspecified (principal); I10 Essential (primary) hypertension; E78.5 Hyperlipidemia, unspecified; K21.9 Gastro-esophageal reflux disease without esophagitis; K76.0 Fatty (change of) liver, not elsewhere classified; E11.9 Type 2 diabetes mellitus without complications; Z79.899 Other long term (current) drug therapy

== ENCOUNTER → 2019-06-29 | Outpatient (CLI) | payer BC ==
[~2019-06-29] MED LIST changes: +ALCOPAD25 TOP; +BLOOKIT21 XX; +CENT1TAB PO; +GARL500C PO; +GLIP5TAB8 PO; +GLUC1TES2 XX; +IBUP-1091 PO; +LANC30MI XX; +METF500T13 PO; +OMEP-221 PO; +ROSU40TA4 PO
[2019-06-29 15:50] LABS: BASO # 0.1 10^3/uL (0.0-0.2); BASO % 0.6 % (0.0-1.0); EOS # 0.2 10^3/uL (0.0-0.50); HEMATOCRIT 43.3 % (42.0-52.0); HEMOGLOBIN 14.6 g/dl (13.5-17.5); LYMPH # 2.6 10^3/uL (1.5-4.5); MEAN CORPUSCULAR HEMOGLOBIN 32.7 pg (27.0-33.0); MEAN CORPUSCULAR HGB CONC 33.7 g/dl (32.0-36.5); MEAN CORPUSCULAR VOLUME 97.1 fl (80.0-96.0); MONO # 0.7 10^3/uL (0.0-0.8); NEUTROPHILS % 63.1 % (36.0-66.0); PLATELET COUNT, AUTOMATED 269 10^3/uL (150-450); RED BLOOD COUNT 4.46 10^6/uL (4.30-6.10); WHITE BLOOD COUNT 9.6 10^3/uL (4.0-10.0)
[2019-06-29 16:08] LABS: INR 1.07; PROTHROMBIN TIME 13.6 SECONDS (11.8-14.0)
[2019-06-29 16:09] LABS: PARTIAL THROMBOPLASTIN TIME 27.5 SECONDS (25.0-38.4)
[2019-06-29 16:11] LABS: ALBUMIN 3.7 GM/DL (3.2-5.2); ALT/SGPT 199 U/L (12-78); BILIRUBIN,TOTAL 1.2 MG/DL (0.2-1.0); BLOOD UREA NITROGEN 10 MG/DL (7-18); CALCIUM LEVEL 9.3 MG/DL (8.5-10.1); CARBON DIOXIDE LEVEL 26 MEQ/L (21-32); CHLORIDE LEVEL 104 MEQ/L (98-107); CREATININE FOR GFR 0.85 MG/DL (0.70-1.30); GLOMERULAR FILTRATION RATE > 60.0 (>56); GLUCOSE, FASTING 134 MG/DL (70-100); SODIUM LEVEL 138 MEQ/L (136-145); TOTAL PROTEIN 7.6 GM/DL (6.4-8.2)
== END ==
LOC: M LAB 14:29
PROVIDERS: ATTEND Internal Medicine Gastroenterology
DX: K70.10 Alcoholic hepatitis without ascites (principal)

== ENCOUNTER 2019-09-16 09:06 | Day surgery (SDC) | payer BC ==
[~2019-09-16] VITALS: Ht 175.3 cm; Wt 93.3 kg
[~2019-09-16 09:06] MED LIST changes: -GARL500C PO; +GARL500C10 PO; -IBUP-1091 PO; +IBUP-1720 PO; +LABE100T36 PO; +NS 1,000 ML IV ONE; +ZETI10TA16 PO; -ZETI10TA30 PO
[2019-09-16] MEDS ORDERED: PROPOFOL 200 MG/20 ML VIAL As Ordered ONE (09:14)
[2019-09-16] MEDS ORDERED: LIDOCAINE 2% INJ 100 MG/5 ML SDV (FOR ANES.) As Ordered ONE (09:14)
--- NOTE | 2019-09-16 10:20 | ROOR ---
Patient Name: Douglas Hernandez Procedure Date: 09/16/2019 9:59 AM Date of : 1960 Age: 58 Room: [facility] Gender: Male Note Status: Finalized Procedure: Colonoscopy Indications: Screening for colorectal malignant neoplasm Providers: Ravindra VALDOVINOS MD Referring MD: Antonio Randolph MD Requesting Provider: Medicines: Monitored Anesthesia Care Complications: No immediate complications. Procedure: Pre-Anesthesia Assessment: - The heart rate, respiratory rate, oxygen saturations, blood pressure, adequacy of pulmonary ventilation, and response to care were monitored throughout the procedure. The Colonoscope was introduced through the anus and advanced to the terminal ileum, with identification of the appendiceal orifice and IC valve. The colonoscopy was performed without difficulty. The patient tolerated the procedure well. The quality of the bowel preparation was good. Findings: The perianal and digital rectal examinations were normal. Retroflexion in the right colon was performed. Small Internal Hemorrhoids. The entire examined colon appeared normal on direct and retroflexion views. The terminal ileum appeared normal. Impression: - Small Internal Hemorrhoids. - The entire examined colon is normal on direct and retroflexion views. - The examined portion of the ileum was normal. - No specimens collected. Recommendation: - Repeat colonoscopy in 10 years for screening purposes. Ravindra Valdovinos MD Ravindra VALDOVINOS MD 09/16/2019 10:20:10 AM Electronically signed by Ravindra VALDOVINOS MD Number of Addenda: 0 Note Initiated On: 09/16/2019 9:59 AM Estimated Blood Loss: Estimated blood loss: none.
[2019-09-16 10:40] VITALS: BP 136/90
== END 2019-09-16 10:46 | disposition home or self-care (01) ==
LOC: M OPP 09:06
PROVIDERS: ATTEND Internal Medicine Gastroenterology
DX: Z12.11 Encounter for screening for malignant neoplasm of colon (principal); K64.8 Other hemorrhoids; I10 Essential (primary) hypertension; E11.9 Type 2 diabetes mellitus without complications; K21.9 Gastro-esophageal reflux disease without esophagitis; R12 Heartburn; Z80.3 Family history of malignant neoplasm of breast; Z79.84 Long term (current) use of oral hypoglycemic drugs; Z79.899 Other long term (current) drug therapy

== ENCOUNTER → 2020-05-30 | Outpatient (CLI) | payer BC ==
[~2020-05-30] MED LIST changes: -GARL500C10 PO; +GARL500C2 PO; -NS 1,000 ML IV ONE; +OMEP1CAP73; -OMEP20CA4
[2020-05-30 10:46] LABS: BASO # 0.1 10^3/uL (0.0-0.2); BASO % 0.6 % (0.0-1.0); EOS # 0.3 10^3/uL (0.0-0.5); EOS % 4.3 % (0.0-3.0); HEMOGLOBIN 15.6 g/dl (13.5-17.5); LYMPH # 2.3 10^3/uL (1.5-5.0); LYMPH % 29.5 % (24.0-44.0); MEAN CORPUSCULAR HEMOGLOBIN 33.1 pg (27.0-33.0); MEAN CORPUSCULAR HGB CONC 35.5 g/dl (32.0-36.5); MEAN CORPUSCULAR VOLUME 93.2 fl (80.0-96.0); MONO # 0.6 10^3/uL (0.0-0.8); MONO % 7.7 % (0.0-5.0); NEUTROPHILS # 4.6 10^3/uL (1.5-8.5); NEUTROPHILS % 57.5 % (36.0-66.0); PLATELET COUNT, AUTOMATED 207 10^3/uL (150-450); RED BLOOD COUNT 4.72 10^6/uL (4.30-6.10); WHITE BLOOD COUNT 7.9 10^3/uL (4.0-10.0)
[2020-05-30 10:55] LABS: INR 0.98; PROTHROMBIN TIME 12.7 SECONDS (11.8-14.0)
[2020-05-30 11:15] LABS: ALBUMIN 3.9 GM/DL (3.2-5.2); BILIRUBIN,DIRECT 0.3 MG/DL (0.0-0.2); BILIRUBIN,TOTAL 0.7 MG/DL (0.2-1.0); PERCENT SATURATION 23.5 % (19.7-50.0); TOTAL PROTEIN 7.6 GM/DL (6.4-8.2)
== END ==
LOC: M LAB 09:31
PROVIDERS: ATTEND Internal Medicine Gastroenterology
DX: K70.10 Alcoholic hepatitis without ascites (principal)

== ENCOUNTER 2021-01-19 15:18 | Emergency (ER) | payer BC ==
[~2021-01-19] VITALS: Ht 175.3 cm; Wt 90.9 kg
[~2021-01-19 15:18] MED LIST changes: +LISI10TA22 PO; -LISI10TA4 PO; -VITA1TAB23 PO; +VITA250T20 PO
--- OUTSIDE RECORDS SUMMARY | 2021-01-19 15:24 | CCD ---
Author Author [facility] Organization [facility] Address Unknown Phone Unavailable Care Team Providers Care Manager Of Allied Health Services Name Role Phone Liberty, D Rc [employer]OND[employer] PRINCIPAL Unavailable Unavailable Liberty, D Rc SECONDARY SCHOOL PRINCIPAL Unavailable Unavailable Liberty, D Rc SECONDARY SCHOOL PRINCIPAL Unavailable Unavailable Liberty, D Rc SECONDARY SCHOOL PRINCIPAL Unavailable Unavailable Liberty, D Rc SECONDARY SCHOOL PRINCIPAL Unavailable Unavailable Ilberty, D Rc SECONDARY SCHOOL PRINCIPAL Unavailable Unavailable Liberty, D Rc SECONDARY SCHOOL PRINCIPAL Unavailable Unavailable Liberty, D Rc SECONDARY SCHOOL PRINCIPAL Unavailable Unavailable Liberty, D Rc SECONDARY SCHOOL PRINCIPAL Unavailable Unavailable Liberty, D Rc SECONDARY SCHOOL PRINCIPAL Unavailable Unavailable Liberty, D Rc SECONDARY SCHOOL PRINCIPAL Unavailable Unavailable Liberty, D Rc SECONDARY SCHOOL PRINCIPAL Unavailable Unavailable Liberty, D Rc SECONDARY SCHOOL PRINCIPAL Unavailable Unavailable Liberty, D Rc SECONDARY SCHOOL PRINCIPAL Unavailable Unavailable Liberty, D Rc SECONDARY SCHOOL PRINCIPAL Unavailable Unavailable Liberty, D Rc SECONDARY SCHOOL PRINCIPAL Unavailable Unavailable Liberty, D Rc SECONDARY SCHOOL PRINCIPAL Unavailable Unavailable Liberty, D Rc SECONDARY SCHOOL PRINCIPAL Unavailable Unavailable Liberty, D Rc SECONDARY SCHOOL PRINCIPAL Unavailable Unavailable Liberty, D Rc SECONDARY SCHOOL PRINCIPAL Unavailable Unavailable Liberty, D Rc SECONDARY SCHOOL PRINCIPAL Unavailable Unavailable Liberty, D Rc SECONDARY SCHOOL PRINCIPAL Unavailable Unavailable Liberty, D Rc SECONDARY SCHOOL PRINCIPAL Unavailable Unavailable Liberty, D Rc SECONDARY SCHOOL PRINCIPAL Unavailable Unavailable Liberty, D Rc SECONDARY SCHOOL PRINCIPAL Unavailable Unavailable Liberty, D Rc SECONDARY SCHOOL PRINCIPAL Unavailable Unavailable Liberty, D Rc SECONDARY SCHOOL PRINCIPAL Unavailable Unavailable Liberty, D Rc SECONDARY SCHOOL PRINCIPAL Unavailable Unavailable Liberty, D Rc SECONDARY SCHOOL PRINCIPAL Unavailable Unavailable Liberty, D Rc SECONDARY SCHOOL PRINCIPAL Unavailable Unavailable Liberty, D Rc SECONDARY SCHOOL PRINCIPAL Unavailable Unavailable Liberty, D Rc SECONDARY SCHOOL PRINCIPAL Unavailable Unavailable Liberty, D Rc SECONDARY SCHOOL PRINCIPAL Unavailable Unavailable Liberty, D Rc SECONDARY SCHOOL PRINCIPAL Unavailable Unavailable Liberty, D Rc SECONDARY SCHOOL PRINCIPAL Unavailable Unavailable Casey SANDRA MD Unavailable Unavailable PARNES, Z VERA MD Unavailable Unavailable PARNES, Z VERA MD Unavailable Unavailable PARNES, Z VERA MD Unavailable Unavailable PARNES, Z VERA MD Unavailable Unavailable PARNES, Z VERA MD Unavailable Unavailable PARNES, Z VERA MD Unavailable Unavailable PARNES, Z VERA MD Unavailable Unavailable PARNES, Z VERA MD Unavailable Unavailable PARNES, Z VERA MD Unavailable Unavailable PARNES, Z EVRA MD Unavailable Unavailable PARNES, Z VERA MD Unavailable Unavailable PARNES, Z VERA MD Unavailable Unavailable PARNES, Z VERA MD Unavailable Unavailable PARNES, Z VERA MD Unavailable Unavailable PARNES, Z VERA MD Unavailable Unavailable PARNES, Z VERA MD Unavailable Unavailable PARNES, Z VERA MD Unavailable Unavailable PARNES, Z VERA MD Unavailable Unavailable PARNES, Z VERA MD Unavailable Unavailable PARNES, Z VREA MD Unavailable Unavailable PARNES, Z VERA MD Unavailable Unavailable PARNES, Z VERA MD Unavailable Unavailable PARNES, Z VERA MD Unavailable Unavailable PARNES, Z VERA MD Unavailable Unavailable PARNES, Z VERA MD Unavailable Unavailable PARNES, Z VERA MD Unavailable Unavailable PARNES, Z VERA MD Unavailable Unavailable PARNES, Z VERA MD Unavailable Unavailable PARNES, Z VERA MD Unavailable Unavailable PARNES, Z VERA MD Unavailable Unavailable PARNES, Z VERA MD Unavailable Unavailable PARNES, Z VERA MD Unavailable Unavailable PARNES, Z VERA MD Unavailable Unavailable PARNES, Z VERA MD Unavailable Unavailable PARNES, Z VERA MD Unavailable Unavailable PARNES, Z VERA MD Unavailable Unavailable PARNES, Z VERA MD Unavailable Unavailable YUSRA, MAQBOOL JEREMY Unavailable Unavailable YUSRA, MAQBOOL JEREMY Unavailable Unavailable YUSRA, MAQBOOL JEREMY Unavailable Unavailable YUSRA, MAQBOOL JEREMY MD Unavailable Unavailable YUSRA, MAQBOOL JEREMY MD Unavailable Unavailable YUSRA, MAQBOOL JEREMY MD Unavailable Unavailable YUSRA, MAQBOOL JEREMY MD Unavailable Unavailable YUSRA, MAQBOOL JEREMY MD Unavailable Unavailable YUSRA, MAQBOOL JEREMY MD Unavailable Unavailable YUSRA, MAQBOOL JEREMY MD Unavailable Unavailable YUSRA, MAQBOOL JEREMY MD Unavailable Unavailable YUSRA, MAQBOOL JEREMY Unavailable Unavailable YUSRA, MAQBOOL JEREMY MD Unavailable Unavailable YUSRA, MAQBOOL JEREMY MD Unavailable Unavailable YUSRA, MAQBOOL JEREMY MD Unavailable Unavailable YUSRA, MAQBOOL JEREMY MD Unavailable Unavailable YUSRA, MAQBOOL JEREMY MD Unavailable Unavailable YUSRA, MAQBOOL JEREMY MD Unavailable Unavailable YUSRA, MAQBOOL JEREMY MD Unavailable Unavailable YUSRA, MAQBOOL JEREMY MD Unavailable Unavailable YUSRA, MAQBOOL JEREMY MD Unavailable Unavailable YUSRA, MAQBOOL JEREMY MD Unavailable Unavailable YUSRA, MAQBOOL JEREMY MD Unavailable Unavailable YUSRA, MAQBOOL JEREMY MD Unavailable Unavailable YUSRA, MAQBOOL JEREMY MD Unavailable Unavailable YUSRA, MAQBOOL JEREMY MD Unavailable Unavailable YUSRA, MAQBOOL JEREMY MD Unavailable Unavailable YUSRA, MAQBOOL JEREMY MD Unavailable Unavailable YUSRA, MAQBOOL JEREMY MD Unavailable Unavailable YUSRA, MAQBOOL JEREMY MD Unavailable Unavailable YUSRA, MAQBOOL JEREMY MD Unavailable Unavailable YUSRA, MAQBOOL JEREMY MD Unavailable Unavailable YUSRA, MAQBOOL JEREMY MD Unavailable Unavailable YUSRA, MAQBOOL JEREMY MD Unavailable Unavailable YUSRA, MAQBOOL JEREMY MD Unavailable Unavailable YUSRA, MAQBOOL JEREMY MD Unavailable Unavailable YUSRA, MAQBOOL JEREMY MD Unavailable Unavailable YUSRA, MAQBOOL JEREMY MD Unavailable Unavailable YUSRA, MAQBOOL JEREMY MD Unavailable Unavailable YUSRA, MAQBOOL JEREMY MD Unavailable Unavailable YUSRA, MAQBOOL JEREMY MD Unavailable Unavailable YUSRA, MAQBOOL JEREMY MD Unavailable Unavailable YUSRA, MAQBOOL JEREMY MD Unavailable Unavailable YUSRA, MAQBOOL JEREMY MD Unavailable Unavailable YUSRA, MAQBOOL JEREMY MD Unavailable Unavailable YUSRA, MAQBOOL JEREMY MD Unavailable Unavailable YUSRA, MAQBOOL JEREMY MD Unavailable Unavailable YUSRA, MAQBOOL JEREMY MD Unavailable Unavailable YUSRA, MAQBOOL JEREMY MD Unavailable Unavailable YUSRA, MAQBOOL JEREMY MD Unavailable Unavailable YUSRA, MAQBOOL JEREMY MD Unavailable Unavailable YUSRA, MAQBOOL JEREMY MD Unavailable Unavailable YUSRA, MAQBOOL JEREMY MD Unavailable Unavailable YUSRA, MAQBOOL JEREMY MD Unavailable Unavailable YUSRA, MAQBOOL JEREMY MD Unavailable Unavailable YUSRA, MAQBOOL JEREMY MD Unavailable Unavailable YUSRA, MAQBOOL JEREMY MD Unavailable Unavailable YUSRA, MAQBOOL JEREMY MD Unavailable Unavailable YUSRA, MAQBOOL JEREMY MD Unavailable Unavailable YUSRA, MAQBOOL JEREMY MD Unavailable Unavailable YUSRA, MAQBOOL JEREMY MD Unavailable Unavailable YUSRA, MAQBOOL JEREMY MD Unavailable Unavailable YUSRA, MAQBOOL JEREMY MD Unavailable Unavailable YUSRA, MAQBOOL JEREMY MD Unavailable Unavailable YUSRA, MAQBOOL JEREMY MD Unavailable Unavailable YUSRA, MAQBOOL JEREMY MD Unavailable Unavailable YUSRA, MAQBOOL JEREMY MD Unavailable Unavailable YUSRA, MAQBOOL JEREMY MD Unavailable Unavailable YUSRA, MAQBOOL JEREMY MD Unavailable Unavailable YUSRA, MAQBOOL JEREMY MD Unavailable Unavailable YUSRA, MAQBOOL JEREMY MD Unavailable Unavailable YUSRA, MAQBOOL JEREMY MD Unavailable Unavailable YUSRA, MAQBOOL JEREMY MD Unavailable Unavailable YUSRA, MAQBOOL JEREMY MD Unavailable Unavailable Josesito Phelps MD Unavailable Unavailable Josesito Phelps MD Unavailable Unavailable Josesito Phelps MD Unavailable Unavailable Josesito Phelps MD Unavailable Unavailable Josesito Phelps MD Unavailable Unavailable Josesito Phelps MD Unavailable Unavailable Josesito Phelps MD Unavailable Unavailable Josesito Phelps MD Unavailable Unavailable Josesito Phelps MD Unavailable Unavailable Josesito Phelps MD Unavailable Unavailable Josesito Phelps MD Unavailable Unavailable Josesito Phelps MD Unavailable Unavailable Josesito Phelps MD Unavailable Unavailable Jsoesito Phelps MD Unavailable Unavailable Josesito Phelps MD Unavailable Unavailable Josesito Phelps MD Unavailable Unavailable Josesito Phelps MD Unavailable Unavailable Josesito Phelps MD Unavailable Unavailable Josesito Phelps MD Unavailable Unavailable Josesito Phelps MD Unavailable Unavailable Josesito Phelps MD Unavailable Unavailable Vaneenenaam, Josesito Mayen MD Unavailable Unavailable Vaneenenaam, Josesito Mayen MD Unavailable Unavailable Vaneenenaam, Josesito Mayen MD Unavailable Unavailable Vaneenenaam, Josesito Mayen MD Unavailable Unavailable Vaneenenaam, Josesito Mayen MD Unavailable Unavailable Vaneenenaam, Josesito Mayen MD Unavailable Unavailable Vaneenenaam, Josesito Mayen MD Unavailable Unavailable Vaneenenaam, Josesito Mayen MD Unavailable Unavailable Vaneenenaam, Josesito Mayen MD Unavailable Unavailable Vaneenenaam, Josesito Mayen MD Unavailable Unavailable Vaneenenaam, Josesito Mayen MD Unavailable Unavailable Vaneenenaam, Josesito Mayen MD Unavailable Unavailable Vaneenenaam, Josesito Mayen MD Unavailable Unavailable Vaneenfloram, Josesito Mayen MD Unavailable Unavailable Vaneenenaam, Josesito Mayen MD Unavailable Unavailable Vaneenenaam, Josesito Mayen MD Unavailable Unavailable Vaneenenaam, Josesito Mayen MD Unavailable Unavailable Vaneenfloram, Josesito Mayen MD Unavailable Unavailable Vanviridianaam, Josesito Mayen MD Unavailable Unavailable Analisaam, Josesito Mayen MD Unavailable Unavailable Mattie, Josesito Mayen MD Unavailable Unavailable REINDL, KAUSHIK SOLIS Unavailable Unavailable REINDL, KAUSHIK SOLIS Unavailable Unavailable REINDL, KAUSHIK SOLIS Unavailable Unavailable REINDL, KAUSHIK SOLIS Unavailable Unavailable REINDL, KAUSIHK SOLIS Unavailable Unavailable REINDL, KAUSHIK SOLIS Unavailable Unavailable REINDL, KAUSHIK SOLIS Unavailable Unavailable REINDL, KAUSHIK SOLIS Unavailable Unavailable REINDL, KAUSHIK SOLIS Unavailable Unavailable REINDL, KAUSHIK SOLIS Unavailable Unavailable REINDL, KAUSHIK SOLIS Unavailable Unavailable REINDL, KAUSHIK SOLIS Unavailable Unavailable REINDL, KAUSHIK SOLIS Unavailable Unavailable REINDL, KAUSHIK SOLIS Unavailable Unavailable REINDL, KAUSHIK SOLIS Unavailable Unavailable SHEYDL, KAUSHIK SOLIS Unavailable Unavailable SHEYDL, KAUSHIK SOLIS Unavailable Unavailable REINDL, KAUSHIK SOLIS Unavailable Unavailable REINDL, KAUSHIK SOLIS Unavailable Unavailable REINDL, KAUSHIK SOLIS Unavailable Unavailable REINDL, KAUSHIK SOLIS Unavailable Unavailable REINDL, KAUSHIK SOLIS Unavailable Unavailable REINDL, KAUSHIK SOLIS Unavailable Unavailable REINDL, KAUSHIK SOLIS Unavailable Unavailable REINDL, KAUSHIK SOLIS Unavailable Unavailable REINDL, KAUSHIK SOLIS Unavailable Unavailable REINDL, KAUSHIK SOLIS Unavailable Unavailable REINDL, KAUSHIK SOLIS Unavailable Unavailable REINDL, KAUSHIK SOLIS Unavailable Unavailable REINDL, KAUSHIK SOLIS Unavailable Unavailable REINDL, KAUSHIK SOLIS Unavailable Unavailable REINDL, KAUSHIK SOLIS Unavailable Unavailable REINDL, KAUSHIK SOLIS Unavailable Unavailable REINDL, KAUSHIK SOLIS Unavailable Unavailable REINDL, KAUSHIK SOLIS Unavailable Unavailable REINDL, KAUSHIK SOLIS Unavailable Unavailable REINDL, KAUSHIK SOLIS Unavailable Unavailable REINDL, KAUSHIK SOLIS Unavailable Unavailable REINDL, KAUSHIK SOLIS Unavailable Unavailable REINDL, KAUSHIK SOLIS Unavailable Unavailable REINDL, KAUSHIK SOLIS Unavailable Unavailable REINDL, KAUSHIK SOLIS Unavailable Unavailable KAUSHIK VALDOVINOS MD Unavailable Unavailable KAUSHIK VALDOVINOS MD Unavailable Unavailable Re-disclosure Warning The records that you are about to access may contain information from federally-assisted alcohol or drug abuse programs. If such information is present, then the following federally mandated warning applies: This information has been disclosed to you from records protected by federal confidentiality rules (42 CFR part 2). The federal rules prohibit you from making any further disclosure of this information unless further disclosure is expressly permitted by the written consent of the person to whom it pertains or as otherwise permitted by 42 CFR part 2. A general authorization for the release of medical or other information is NOT sufficient for this purpose. The Federal rules restrict any use of the information to criminally investigate or prosecute any alcohol or drug abuse patient.The records that you are about to access may contain highly sensitive health information, the redisclosure of which is protected by Article 27-F of the [facility] Public Health law. If you continue you may have access to information: Regarding HIV / AIDS; Provided by facilities licensed or operated by the [facility] Office of Mental Health; or Provided by the [facility] Office for People With Developmental Disabilities. If such information is present, then the following [facility] mandated warning applies: This information has been disclosed to you from confidential records which are protected by state law. State law prohibits you from making any further disclosure of this information without the specific written consent of the person to whom it pertains, or as otherwise permitted by law. Any unauthorized further disclosure in violation of state law may result in a fine or detention sentence or both. A general authorization for the release of medical or other information is NOT sufficient authorization for further disc losure. Family History Family Member Name Family Member Gender Family Member Status Date o f Status Description Data Source(s) Unknown Unknown Problem [facility] ([facility]) Unknown Unknown Problem [facility] ([facility]) Unknown Female Problem [facility] ([facility]) Encounters Encounter Providers Location Date Indications Data Source(s ) Outpatient Attender: Josesito Phelps MD Physical Therap y 06/25/2020 09:15:00 AM EDT [facility] ([facility]) Outpatient Attender: KAUSHIK Bustillos/Janie/Sav/Shey dl 05/30/2020 09:00:00 AM EDT [facility] ([facility]) Outpatient Attender: JEREMY MENG MDConsultant: JEREMY Sullivan MD 05/18/2020 09:55:00 AM EDT - 05/18/2020 10:55:00 AM EDT [facility] Outpatient Attender: Josesito Phelps MD Physical Therap y 04/02/2020 02:00:00 PM EDT [facility] ([facility]) Outpatient Attender: JEREMY MENG MDConsultant: JEREMY Sullivan MD 01/30/2020 11:40:00 AM EST - 01/30/2020 12:40:00 PM EST [facility] Outpatient Attender: Rc Koenig [facility] ahsan: VERA SANDRA MDConsultant: JEREMY MENG MD 01/09/2020 08:01:00 AM EST - 01/09/2020 08:01:00 AM [facility] Medications Medication Brand Name Start Date Product Form Dose Route Admi nistrative Instructions Pharmacy Instructions Status Indications Reaction Description Data Source(s) 10 mg 07/13/2020 12:00:00 AM EDT tablet 10 TAKE ONE TABLET BY MOUTH EVERY DAY TAKE ONE TABLET BY MOUTH EVERY DAY SOLD: 07/16/2020 [facility] 10 mg 07/02/2020 12:00:00 AM EDT tablet 10 TAKE ONE TABLET BY MOUTH ONCE DAILY TAKE ONE TABLET BY MOUTH ONCE DAILY SOLD: 07/03/2020 [facility] Insurance Providers Payer name Policy type / Coverage type Policy ID Covered constitution party ID Covered constitution party's relationship to bill Policy Bill Plan Information [place]BS [place] [facility] 302/307 [id number] SP [id number] BLUE CROSS BLUE SHIELD-O/P [id number] 18 [id number] BLUE CROSS BLUE SHIELD [place] [id number] 18 [id number] BCBS [facility] 301/801 [id number] SP [id number] [employer] Workers Compensation [id number] Self [id number] [place] () Workers Compensation [id number] Self [id number] [employer] () Workers Compensation [id number] Self [id number] [employer] () Workers Compensation [id number] Self [id number] [place] [facility]) Workers Compensation [id number] Self [id number] Alex Claims Workers Compensation [id number] Self [id number] [place] () Workers Compensation [id number] Self [id number] Excell[employer] [facility] Health Maintenance Organization ([facility]) [id number] Self [id number] [employer] Workers Compensation [id number] Self [id number] [facility] Workers Compensation Self [employer] () Workers Compensation [id number] Self [id number] [employer] () Workers Compensation [id number] Self [id number] [facility] Workers Compensation [id number] Self [id number] [place] Claims Workers Compensation [id number] Self [id number] [facility] 301/801 [id number] SP [id number] [employer] WORKER COMP [id number] SP [id number] [employer] Workers Compensation [id number] Self [id number] [facility] Workers Compensation Self [id number] [employer] () Workers Compensation [id number] Self [id number] [employer] () Workers Compensation [id number] Self [id number] [place] [facility]) Workers Compensation [id number] Self [id number] [place] [employer] Workers Compensation [id number] Self [id number] [employer] WORKER COMP [id number] SP [id number] [employer] Workers Compensation [id number] Self [id number] [facility] Workers Compensation [id number] Self [id number] Travel[employer] ([facility] Workers Compensation [id number] Self [id number] Travel[employer] ([facility] Workers Compensation [id number] Self [id number] [facility] Workers Compensation [id number] Self [id number] [place] Claims Workers Compensation [id number] Self [id number] [employer] Workers Compensation [id number] Self [id number] [facility] Workers Compensation [id number] Self [id number] Travel[employer] ([facility] Workers Compensation [id number] Self [id number] Travel[employer] ([facility] Workers Compensation [id number] Self [id number] [facility] Compensation [id number] Self [id number] Alex Claims Workers Compensation [id number] Self [id number] ANSI-Not a Secondary Insurance [id number] ANSI-Not a Secondary Insurance [id number] [employer] [id number] SP [id number] [employer] Workers Compensation [id number] Self [id number] [facility] Workers Compensation Self [id number] [employer] () Workers Compensation [id number] Self [id number] [employer] () Workers Compensation [id number] Self [id number] [facility] Workers Compensation [id number] Self [id number] [place] Claims Workers Compensation [id number] Self [id number] [employer] Workers Compensation [id number] Self [id number] [facility] Workers Compensation [id number] Self [id number] [employer] () Workers Compensation [id number] Self [id number] [employer] ([facility] Workers Compensation [id number] Self [id number] [facility] Workers Compensation [id number] Self [id number] [place] Claims Workers Compensation [id number] Self [id number] [employer]NAG[employer] O [id number] S [id number] [employer] MANAGEMENT O [id number] S [id number] [employer] Workers Compensation [id number] Self [id number] [facility] Workers Compensation Self [id number] Travelers [facility]) Workers Compensation [id number] Self [id number] [employer] () Workers Compensation [id number] Self [id number] [facility] Workers Compensation [id number] Self [id number] Alex Claims Workers Compensation [id number] Self [id number] [place] MUTUAL WORKER COMP [id number] SP [id number] [place]BS [place] PPO 302/307 [id number] SP [id number] BCBS [place] PPO 302/307 [id number] SP [id number] [facility] [id number] SP [id number] BCBS/[employer] Commercial [id number] [id number] BCBS/[employer] Medigap Part B [id number] Self [id number] [place] Workers Compensation [id number] Self [id number] [place] [id number] SP [id number] [employer] Workers Compensation [id number] Self [id number] [facility] Workers Compensation [id number] Self [id number] [employer] () Workers Compensation [id number] Self [id number] [employer] () Workers Compensation [id number] Self [id number] [facility] Workers Compensation [id number] Self [id number] [place] Claims Workers Compensation [id number] Self [id number] [employer] Workers Compensation [id number] Self [id number] [facility] Workers Compensation [id number] Self [id number] Travelers [facility]) Workers Compensation [id number] Self [id number] [employer] () Workers Compensation [id number] Self [id number] [facility] Workers Compensation [id number] Self [id number] [place] Claims Workers Compensation [id number] Self [id number] [employer]CELL[employer] BCBS B [id number] [id number] [id number] OTHER WORKERS COMPENSATI O [id number] S [id number] EXCELL[employer] BCBS B [id number] S [id number] [place] Workers Compensation [id number] Self [id number] [employer] Workers Compensation Self Alex (WC) Workers Compensation Self [employer] (WC) Workers Compensation Self [employer] (WC) Workers Compensation Self [place] CMS (WC) Workers Compensation Self Travel[employer] (WC) Workers Compensation Self [facility] [facility] B [id number] S [id number] [facility] BLUE SHIELD-O/P [id number] 18 [id number] Problems, Conditions, and Diagnoses Code Display Name Description Problem Type Effective Dates Data Source(s) 942338434 Olecranon bursitis Olecranon bursitis Problem 08/2020 12:00:00 AM EST [facility] ([facility]) [id number] Essential hypertension Essential hypertension Problem 01/06/2020 12:00:00 AM EST [facility] ([facility]) K759 Inflammatory liver disease, unspecified Inflammatory liver disease, unspecified Diagnosis 05/18/2020 09:55:00 AM EDT [facility] D649 Anemia, unspecified Anemia, unspecified Diagnosis 0 05/18/2020 09:55:00 AM EDT [facility] E119 Type 2 diabetes mellitus without complic ations Type 2 diabetes mellitus without complications Diagnosis 01/30/2020 11:40:00 AM EST [facility] [id number] Olecranon bursitis, right elbow Olecranon bursitis, ri ght elbow Diagnosis 01/09/2020 08:01:00 AM EST [facility] Results ID Date Data Source [id number] 05/30/2020 09:59:00 AM EDT [facility], ) Name Value Range Interpretation Code Description Data Pat rce(s) Supporting Document(s) Iron (Fe) 88 ug/dL 65-175 Normal (applies to non-numeric resul ts) [facility] ([facility], ) Total Iron Binding Capacity 375 ug/dL 250-450 Norm al (applies to non-numeric results) [facility] ([facility], ) Percent Saturation 23.5 % 19.7-50.0 Normal (applies to non-numer ic results) [facility] ([facility], ) 06/01/20 (ThuJun 01) 02:39 PM KAUSHIK MARQUIS NDL Liver enzymes moderately elevated. iron studies show normal iron (no excessive iron) ID Date Data Source [id number] 05/30/2020 09:59:00 AM EDT [facility], [facility] Name Value Range Interpretation Code Description Data Pat rce(s) Supporting Document(s) White Blood Count 7.9 10 4.0-10.0 Normal (applies to non-numeri c results) [facility]) Hemoglobin 15.6 g/dL 13.5-17.5 Normal (applies to non-numeric resul ts) [facility]) Red Blood Count 4.72 10 4.30-6.10 Normal (applies to non-numeric results) [facility]) Mean Corpuscular Volume 93.2 fl 80.0-96.0 Normal ( applies to non-numeric results) [facility]) Hematocrit 44.0 % 42.0-52.0 Normal (applies to non-numeric resul ts) [facility]) Red Cell Distribution Width 11.9 % 11.5-14.5 Norm al (applies to non-numeric results) [facility]) Mean Corpuscular HGB Conc 35.5 g/dL 32.0-36.5 Normal (applies to non-numeric results) [facility]) Mean Corpuscular Hemoglobin 33.1 pg 27.0-33.0 Above high normal [facility] ([facility]) Platelet Count, Automated 207 10 150-450 Normal (applies to non-numeric results) [facility]) Lymph % 29.5 % 24.0-44.0 Normal (applies to non-numeric resul ts) [facility]) Neutrophils % 57.5 % 36.0-66.0 Normal (applies to non-numeric re sults) [facility]) [place] % 7.7 % 0.0-5.[address] [facility]) Baso % 0.6 % 0.0-1.0 Normal (applies to non-numeric resul ts) [facility] Eos % 4.3 % 0.0-3.0 Above high normal [facility] ([facility]) Nucleated Red Blood Cell % 0.0 % 0-0 Normal (applies to n on-numeric results) [facility]) Neutrophils # 4.6 10 1.5-8.5 Normal (applies to non-numeric re sults) [facility]) Immature Granulocyte % 0.4 % 0-3.0 Normal (applies to non-n umeric results) [facility]) Lymph # 2.3 10 1.5-5.0 Normal (applies to non-numeric resul ts) [facility]) [place] # 0.6 10 0.0-0.8 Normal (applies to non-numeric resul ts) [facility] Baso # 0.1 10 0.0-0.2 Normal (applies to non-numeric resul ts) [facility]) Eos # 0.3 10 0.0-0.5 Normal (applies to non-numeric resul ts) [facility] ([facility]) ID Date Data Source [id number] 05/30/2020 09:59:00 AM EDT [facility] ([facility]) Name Value Range Interpretation Code Description Data Pat rce(s) Supporting Document(s) Prothrombin Time 12.7 s 11.8-14.0 Normal (applies to non-numeric results) [facility] ([facility]) Inr 0.98 Normal (applies to non-numeric resul ts) [facility]) THERAPUTIC HUMAN INR VALUES INDICATIONS NORMAL RANGES PROPHYLAXIS/TREATMENT OF: VENOUS THROMBOSIS 2.0-3.0 PULMONARY EMBOLISM 2.0-3.0 PREVENTION OF SYSTEMIC EMBOLISM FROM: TISSUE HEART VALVES 2.0-3.0 ACUTE MYOCARDIAL INFARCTION 2.0-3.0 VALVULAR HEART DISEASE 2.0-3.0 ATRIAL FIBRILLATION 2.0-3.0 MECHANICAL VALVES(HIGH RISK) 2.5-3.5 RECURRENT MYOCARDIAL INFARCTION 2.5-3.5 ID Date Data Source [id number] 05/30/2020 09:59:00 AM EDT [facility] ([facility], ) Name Value Range Interpretation Code Description Data Pat rce(s) Supporting Document(s) Alt/SGPT 192 U/L 12-78 Above high normal [facility] ([facility]) Ast/Sgot 87 U/L 7-37 Above high normal [facility] ([facility]) Bilirubin,Total 0.7 mg/dL 0.2-1.0 Normal (applies to non-numeric results) [facility] ([facility]) Alkaline Phosphatase 132 U/L 45-117 Above high normal [facility] ([facility]) Bilirubin,Direct 0.3 mg/dL 0.0-0.2 Above high normal [facility] Total Protein 7.6 GM/DL 6.4-8.2 Normal (applies to non-numeric re sults) [facility] ([facility]) Albumin/Globulin Ratio 1.1 Normal (applies to non-n umeric results) [facility] ([facility]) Albumin 3.9 GM/DL 3.2-5.2 Normal (applies to non-numeric resul ts) [facility] ([facility]) ID Date Data Source [id number] 05/20/2020 08:53:00 AM EDT [facility] Name Value Range Interpretation Code Description Data Pat rce(s) Supporting Document(s) Cancer Ag 19-9 [Units/volume] in Serum or Plasma 31 U/mL 0-35 [facility] [employer] Electrochemil[employer] Immunoassay (ECLIA)Values obtained with different assay methods or kits cannot beused interchangeably. Results cannot be interpreted as absoluteevidence of the presence or absence of malignant disease. ID Date Data Source [id number] 05/19/2020 01:17:00 PM EDT [facility] Value Range Interpretation Code Description Data Pat rce(s) Supporting Document(s) [id number].tumor marker [Mass/volume] in Serum or P lasma 8.1 ng/mL 0.0-8.3 [facility] [employer] Electrochemilumines[employer] Immunoassay (ECLIA)Values obtained with different assay methods or kits cannot beused interchangeably. Results cannot be interpreted as absoluteevidence of the presence or absence of malignant disease.This test is not interpretable in females. ID Date Data Source [id number] 05/19/2020 01:17:00 PM EDT [facility] Name Value Range Interpretation Code Description Data Pat rce(s) Supporting Document(s) Carcinoembryonic Ag [Mass/volume] in Serum or Plasma 1.8 ng/mL 0.0-4 .7 [facility] Nonsmokers <3.9 Smokers <5.6 [facility] Electrochemiluminescence Immunoassay (ECLIA) Values obtained with different assay methods or kits cannot be used interchangeably. Results cannot be interpreted as absolut e evidence of the presence or absence of malignant disease. ID Date Data Source [id number] 05/18/2020 11:08:00 AM EDT [facility] Name Value Range Interpretation Code Description Data Pat rce(s) Supporting Document(s) Ferritin [Mass/volume] in Serum or Plasma 1120.0 ng/mL 5.0 - 244 H [facility] ID Date Data Source [id number] 05/18/2020 11:03:00 AM EDT [facility] Name Value Range Interpretation Code Description Data Pat rce(s) Supporting Document(s) Protein [Mass/volume] in Serum or Plasma 7.8 G/DL 6.3 - 8.2 [facility] Albumin [Mass/volume] in Serum or Plasma 4.8 G/DL 3.9 - 5.0 [facility] Globulin [Mass/volume] in Serum by calculation 3.0 GM/DL 2.4 - 3.2 [facility] Bilirubin.total [Mass/volume] in Serum or Plasma 1.5 MG/DL 0.2 - 1.3 H [facility] Bilirubin.direct [Mass/volume] in Serum or Plasma 0.4 MG/DL 0.1 - 0. 4 [facility] Bilirubin.indirect [Mass/volume] in Serum or Plasma 1.1 MG/DL 0.2 - 1.1 [facility] Aspartate aminotransferase [Enzymatic activity/volume] in Serum or Plasma 139 U/L 5 - 40 H [facility] Alanine aminotransferase [Enzymatic activity/volume] in Seru m or Plasma 305 U/L 7 - 56 H [facility] Alkaline phosphatase [Enzymatic activity/volume] in Serum or Plasma 111 U/L 38 - 126 [facility] ID Date Data Source [id number] 05/18/2020 11:03:00 AM EDT [facility] Name Value Range Interpretation Code Description Data Pat rce(s) Supporting Document(s) Iron [Mass/volume] in Serum or Plasma 190 UG/DL 42 - 135 H [facility] Iron binding capacity.unsaturated [Mass/volume] in Serum or Plasma 207 UG/DL 112 - 347 [facility] Iron binding capacity [Mass/volume] in Serum or Plasma 397 ug/dL 250 - 450 [facility] Iron saturation [Mass Fraction] in Serum or Plasma 48 % [facility] ID Date Data Source [id number] 01/30/2020 12:39:00 PM EST [facility] Name Value Range Interpretation Code Description Data Pat rce(s) Supporting Document(s) COMPREHENSIVE METABOLIC PANEL [facility] COMPREHENSIVE METABOLIC PANEL Sodium [Moles/volume] in Serum or Plasma 141 mEq/L 134 - 153 [facility] Potassium [Moles/volume] in Serum or Plasma 4.1 mEq/L 3.6 - 5.0 [facility] Chloride [Moles/volume] in Serum or Plasma 103 mEq/L 98 - 107 [facility] Carbon dioxide, total [Moles/volume] in Serum or Plasma 27 MEQ/L 22 - 30 [facility] Glucose [Mass/volume] in Serum or Plasma 97 MG/DL 65 - 110 [facility] BUN 7 [facility] 7 - [facility] Creatinine [Mass/volume] in Serum or Plasma 0.8 MG/DL 0.7 - 1.5 [facility] BUN/CREAT 9 8 - 27 [facility] al Protein [Mass/volume] in Serum or Plasma 7.3 G/DL 6.3 - 8.2 [facility] Albumin [Mass/volume] in Serum or Plasma 4.5 G/DL 3.9 - 5.0 [facility] Globulin [Mass/volume] in Serum by calculation 2.8 GM/DL 2.4 - 3.2 [facility] A/G RATIO 1.6 0.8 - 2.0 [facility] al Calcium [Mass/volume] in Serum or Plasma 9.4 MG/DL 8.4 - 10.2 [facility] Bilirubin.total [Mass/volume] in Serum or Plasma 1.0 MG/DL 0.2 - 1.3 [facility] Alkaline phosphatase [Enzymatic activity/volume] in Serum or Plasma 129 U/L 38 - 126 H [facility] Aspartate aminotransferase [Enzymatic activity/volume] in Serum or Plasma 197 U/L 5 - 40 H [facility] Alanine aminotransferase [Enzymatic activity/volume] in Seru m or Plasma 367 U/L 7 - 56 H [facility] Anion gap 3 in Serum or Plasma 11.0 mmol/L 8.0 - 16.0 [facility]GE 59 [facility] >60 mL/min [facility] AFR AMER GFR >60 mL/min [facility] Ho spital Male GFR In terprentation 20-49 yrs >60 mL/min Normal 50-59 yrs >56 mL/min Normal 60-69 yrs >49 mL/min Normal 70-79yrs >42 mL/min Normal 80 and above >35 mL/min Normal Female GFR Interpretation 20-39 yrs >60 mL/min Normal 40-49 yrs >58 mL/min Normal 50-59 yrs >51 mL/min Normal 60-69 yrs >45 mL/min Normal 70-79 yrs >39 mL/min Normal 80 and above >32 mL/min Normal ID Date Data Source [id number] 01/30/2020 12:38:00 PM [facility] [employer] Name Value Range Interpretation Code Description Data Pat rce(s) Supporting Document(s) Bilirubin.direct [Mass/volume] in Serum or Plasma 0.3 MG/DL 0.1 - 0. 4 [facility] ID Date Data Source [id number] 01/30/2020 11:59:00 AM [facility] Name Value Range Interpretation Code Description Data Pat rce(s) Supporting Document(s) CBC W/AUTOMATED DIFF [facility] COMPLETE BLOOD COUNT Leukocytes [#/volume] in Blood by Automated count 6.9 10^3/uL 4.2 - 1 1.0 [facility] Erythrocytes [#/volume] in Blood by Automated count 4.59 10^6/uL 4. 50 - 6.30 [facility] Hemoglobin [Mass/volume] in Blood 15.1 g/dL 14.0 - 16.0 [facility] Hematocrit [Volume Fraction] of Blood by Automated count 42.4 % 4 1.0 - 51.0 [facility] Erythrocyte mean corpuscular volume [Entitic volume] by Auto mated count 92.4 fL 80.0 - 94.0 [facility] Erythrocyte mean corpuscular hemoglobin [Entitic mass] by Automated count 32.9 pg 27.0 - 34.0 [facility] Erythrocyte mean corpuscular hemoglobin concentration [Mass/volume] by Automated count 35.6 g/dL 31.0 - 36.0 [facility] Erythrocyte distribution width [Ratio] by Automated count 12.9 % 11.5 - 14.8 [facility] Platelets [#/volume] in Blood by Automated count 183 10^3/uL 150 - 45 0 [facility] Platelet mean volume [Entitic volume] in Blood by Automated count 11.1 fL 7.4 - 10.4 H [facility] Neutrophils/100 leukocytes in Blood by Automated count 51.6 % 37. 0 - 80.0 [facility] Lymphocytes/100 leukocytes in Blood by Manual count 34.9 % 25.0 - 40.0 [facility] Monocytes/100 leukocytes in Blood by Automated count 8.1 % 3.0 - 8.0 H [facility] Eosinophils/100 leukocytes in Blood by Automated count 4.4 % 0.0 - 7.0 [facility] Basophils/100 leukocytes in Blood by Automated count 0.7 % 0.0 - 2.0 [facility] %IG 0.3 % 0.0 - [facility].0 [facility] %NRBC 0.0 % 0.0 - 0.0 [facility] al Neutrophils [#/volume] in Blood by Automated count 3.55 10^3/uL 2.00 - 6.90 [facility] Lymphocytes [#/volume] in Blood by Automated count 2.40 10^3/uL 0.60 - 3.40 [facility] Monocytes [#/volume] in Blood by Automated count 0.56 10^3/uL 0.00 - 0.90 [facility] Eosinophils [#/volume] in Blood by Automated count 0.30 10^3/uL 0.00 - 0.70 [facility] Basophils [#/volume] in Blood by Automated count 0.05 10^3/uL 0.00 - 0.20 [facility] #IG 0.02 10^3/uL 0.00 - 0.10 [facility]spital #NRBC 0.00 10^3/uL 0.00 - 0.00 [facility] MANUAL DIFF NOT INDICATED [facility] RBC MORPH NOT INDICATED [facility] Procedure Vital Signs ID Date Data Source UNK Name Value Range Interpretation Code Description Data Source(s) Body weight 96.617 kg 96.617 kg [facility] ([facility]) Body mass index (BMI) [Ratio] 31.5 kg/m2 31.5 k g/m2 [facility] ([facility]) Body weight 213.00 [lb_av] 213.00 [lb_av] BART T ([facility]) Body height 69 [in_i] 69 [in_i] [facility] ([facility]) 5'9" Diastolic blood pressure 86 mm[Hg] 86 mm[Hg] [facility] ([facility]) Systolic blood pressure 133 mm[Hg] 133 mm[Hg] Raiza DSOUZA ([facility])
--- NOTE | 2021-01-19 16:00 | REP ---
INDICATION: fall/ head injury. COMPARISON: None. TECHNIQUE: CT BRAIN PERFORMED IN THE AXIAL PLANE. CORONAL RECONSTRUCTION IMAGES ARE PERFORMED. FINDINGS: Lateral ventricles are midline symmetric and without dilatation or displacement. Third and 4th ventricles unremarkable gould-white junction differentiation well-maintained. Basal ganglia symmetric. Cortical stripe shows minimal atrophy. There is no intra or extra-axial hemorrhage, mass, mass effect or vascular territory infarct. No white matter tract heterogeneity noted. There is a prominent posterior parietooccipital left-sided scalp hematoma without subjacent skull fracture, intracranial contusion or contrecoup injury. The brainstem was unremarkable. Cerebellum shows mild atrophy. No posterior fossa hemorrhage. Basal cisterns intact. Mastoids, sinuses grossly clear. Skull base and calvarium without fracture or focal lesion. IMPRESSION: There is a prominent left posterior parieto-occipital scalp hematoma without subjacent skull fracture, intracranial contusion or contrecoup injury. There are no other significant findings. <Electronically signed by Frank Monteiro > 01/19/21 [id number]
--- NOTE | 2021-01-19 16:09 | REP ---
INDICATION: fall/ head injury. COMPARISON: None. TECHNIQUE: Axial soft tissue and bone windows with coronal and sagittal bone window reconstructions provided FINDINGS: Sagittal images show some loss of lordosis which may be the effect of the cervical collar seen on the audit consultant image. There is cervical spondylosis with disc space narrowing from C3-4 through C6-7 with anterior osteophytes at all those levels and small posterior osteophytes at several levels no compression fracture or malalignment. No prevertebral swelling. I do not see any significant central canal stenosis. Uncinate spurring noted on the left at C 6 7 May cause some mild foraminal encroachment. The other foramina are adequate. The C1-2 relationships are normal on all projections. Dens without fracture craniocervical junction and cervicothoracic alignment normal. Visualized upper thoracic vertebral levels and ribs were intact the lung apices clear. IMPRESSION: 1. Cervical spondylosis from C3-4 through C6-7 without compression fracture, malalignment or spinal stenosis. Minor foraminal encroachment due to uncinate spur on the left at C6-7. 2. Loss of lordosis felt related to the cervical collar. Craniocervical junction and cervicothoracic alignment normal. <Electronically signed by Frank Monteiro > 01/19/21 [id number]
[2021-01-19] MEDS ORDERED: NORCO, ANEXSIA 5/325MG TABLET (HYDROcodone/ACETAMINOPHEN) PO ONE (16:15)
--- OUTSIDE RECORDS SUMMARY | 2021-01-19 16:44 | CCD ---
Author Author [facility] Organization [facility] Address Unknown Phone Unavailable Care Team Providers Care Environmental Advisor Name Role Phone Liberty, D Rc SHOP ESTIMATOR Unavailable Unavailable Liberty, D Rc SHOP ESTIMATOR Unavailable Unavailable Liberty, D Rc SHOP ESTIMATOR Unavailable Unavailable Liberty, D Rc SHOP ESTIMATOR Unavailable Unavailable Liberty, D Rc SHOP ESTIMATOR Unavailable Unavailable Liberty, D Rc SHOP ESTIMATOR Unavailable Unavailable Liberty, D Rc SHOP ESTIMATOR Unavailable Unavailable Liberty, D Rc SHOP ESTIMATOR Unavailable Unavailable Liberty, D Rc SHOP ESTIMATOR Unavailable Unavailable Liberty, D Rc SHOP ESTIMATOR Unavailable Unavailable Liberty, D Rc SHOP ESTIMATOR Unavailable Unavailable Liberty, D Rc SHOP ESTIMATOR Unavailable Unavailable Liberty, D Rc SHOP ESTIMATOR Unavailable Unavailable Liberty, D Rc SHOP ESTIMATOR Unavailable Unavailable Liberty, D Rc SHOP ESTIMATOR Unavailable Unavailable Liberty, D Rc SHOP ESTIMATOR Unavailable Unavailable Liberty, D Rc SHOP ESTIMATOR Unavailable Unavailable Liberty, D Rc SHOP ESTIMATOR Unavailable Unavailable Liberty, D Rc SHOP ESTIMATOR Unavailable Unavailable Liberty, D Rc SHOP ESTIMATOR Unavailable Unavailable Liberty, D Rc SHOP ESTIMATOR Unavailable Unavailable Liberty, D Rc SHOP ESTIMATOR Unavailable Unavailable Liberty, D Rc SHOP ESTIMATOR Unavailable Unavailable Liberty, D Rc SHOP ESTIMATOR Unavailable Unavailable Liberty, D Rc SHOP ESTIMATOR Unavailable Unavailable Liberty, D Rc SHOP ESTIMATOR Unavailable Unavailable Liberty, D Rc SHOP ESTIMATOR Unavailable Unavailable Liberty, D Rc SHOP ESTIMATOR Unavailable Unavailable Liberty, D Rc SHOP ESTIMATOR Unavailable Unavailable Liberty, D Rc SHOP ESTIMATOR Unavailable Unavailable Liberty, D Rc SHOP ESTIMATOR Unavailable Unavailable Liberty, D Rc SHOP ESTIMATOR Unavailable Unavailable Liberty, D Rc SHOP ESTIMATOR Unavailable Unavailable Liberty, D Rc SHOP ESTIMATOR Unavailable Unavailable Liberty, D Rc SHOP ESTIMATOR Unavailable Unavailable Casey SANDRA MD Unavailable Unavailable [...] MAQBOOL JEREMY MD Unavailable Unavailable YUSRA, MAQBOOL JERMEY MD Unavailable Unavailable YUSRA, MAQBOOL JEREMY MD [...] MAQBOOL JEREMY MD Unavailable Unavailable YUSRA, MAQBOOL JEERMY MD Unavailable Unavailable YUSRA, MAQBOOL JEREMY MD [...] is protected by Article 27-F of the [facility] Public Health law. If you continue you may have access to information: Regarding HIV / AIDS; Provided by facilities licensed or operated by the [facility] Office of Mental Health; or Provided by the [facility] Office for People With Developmental Disabilities. If such information is present, then the following [facility] mandated warning applies: This information has [...] law may result in a fine or mcfp sentence or both. A general authorization for the release of medical or other information is NOT sufficient authorization for further disc losure. Family History Family Member Name Family Member Gender Family Member Status Date o f Status Description Data Source(s) Unknown Unknown Problem [facility] ([facility]) Unknown Unknown Problem [facility] ([facility] Unknown Female Problem [facility] ([facility]) Encounters Encounter Providers Location Date Indications Data Source(s ) Outpatient Attender: Josesito Phelps MD Physical Therap y 06/25/2020 09:15:00 AM EDT [facility] ([facility]) Outpatient Attender: KAUSHIK Bustillos/Janie/Sav/Shey dl 05/30/2020 09:00:00 AM EDT [facility] ([facility]) Outpatient Attender: JEREMY MENG MDConsultant: JEREMY Sullivan MD 05/18/2020 09:55:00 AM EDT - 05/18/2020 10:55:00 AM EDT [facility] Outpatient Attender: Josesito Phelps MD Physical Therap y 04/02/2020 02:00:00 PM EDT [facility] ([facility]) Outpatient Attender: JEREMY MENG MDConsultant: JEREMY Sullivan MD 01/30/2020 11:40:00 AM EST - 01/30/2020 12:40:00 PM EST [facility] Outpatient Attender: Rc [facility] ahsan: VERA SANDRA MDConsultant: JEREMY MENG MD 01/09/2020 08:01:00 AM EST - 01/09/2020 08:01:[address] [facility] Medications Medication Brand Name Start Date Product [...] type / Coverage type Policy ID Covered libertarian ID Covered libertarian's relationship to bill Policy Bill Plan Information [place]BS [place] [facility] 302/307 [id number] SP [id number] BLUE CROSS BLUE SHIELD-O/P [id number] 18 [id number] BLUE CROSS BLUE SHIELD [place] [id number] 18 [id number] BCBS [facility] 301/801 [id number] SP [id number] Button [employer] Workers Compensation [id number] Self [id number] [place] () Workers Compensation [id number] Self [id number] [employer] () Workers Compensation [id number] Self [id number] [employer] () Workers Compensation [id number] Self [id number] [place] [facility]) Workers Compensation [id number] Self [id number] Alex Claims Workers Compensation [id number] Self [id number] [place] () Workers Compensation [id number] Self [id number] [employer] [facility] Health Maintenance Organization ([facility] [id number] Self [id number] Button [employer] Workers Compensation [id number] Self [id number] [facility] Workers Compensation Self [employer] () Workers Compensation [id number] Self [id number] [employer] () Workers Compensation [id number] Self [id number] [facility] Compensation [id number] Self [id number] [place] Claims Workers Compensation [id number] Self [id number] [facility] 301/801 [id number] SP [id number] 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) Workers Compensation [id number] Self [id number] [place] Claims Workers Compensation [id number] Self [id number] [employer]UAL WORKER COMP [id number] SP [id number] Button [employer] Insurance Workers Compensation [id number] Self [id number] [facility] Workers Compensation [id number] Self [id number] Travel[employer] ([facility] Workers Compensation [id number] Self [id number] [employer] ([facility] Workers Compensation [id number] Self [id number] [facility] Workers Compensation [id number] Self [id number] [place] Claims Workers Compensation [id number] Self [id number] [employer] Workers Compensation [id number] Self [id number] [facility] Workers Compensation [id number] Self [id number] Travel[employer] ([facility] Workers Compensation [id number] Self [id number] [employer] ([facility] Workers Compensation [id number] Self [id number] [facility] [id number] Self [id number] Alex Claims Workers Compensation [id number] Self [id number] ANSI-Not a Secondary Insurance [id number] ANSI-Not a Secondary Insurance [id number] MEERA MUTUAL [id number] SP [id number] Button [employer] Insurance Workers Compensation [id number] Self [id number] [facility] Workers Compensation Self [id number] [employer] () Workers Compensation [id number] Self [id number] [employer] () Workers Compensation [id number] Self [id number] [facility] Workers Compensation [id number] Self [id number] [place] Claims Workers Compensation [id number] Self [id number] Button [employer] Workers Compensation [id number] Self [id number] [facility] Workers Compensation [id number] Self [id number] [employer] () Workers Compensation [id number] Self [id number] [employer] ([facility] Workers Compensation [id number] Self [id number] [facility] Workers Compensation [id number] Self [id number] [place] Claims Workers Compensation [id number] Self [id number] ONE CALL CARE MANAGEMENT O [id number] S [id number] ONE CALL CARE MANAGEMENT O [id number] S [id number] Button [employer] Workers Compensation [id number] Self [id number] [facility] Workers Compensation Self [id number] Travelers [facility]) Workers Compensation [id number] Self [id number] [employer] () Workers Compensation [id number] Self [id number] [facility] Compensation [id number] Self [id number] Alex Claims Workers Compensation [id number] Self [id number] [employer] M[employer]UAL WORKER COMP [id number] SP [id number] [place]BS [place] PPO 302/307 [id number] SP [id number] [place]BS [place] PPO 302/307 [id number] SP [id number] [facility] [id number] SP [id number] BCBS/Excell[employer] Commercial [id number] [id number] BCBS/[employer]cell[employer] Medigap Part B [id number] Self [id number] [place] Workers Compensation [id number] Self [id number] [place] [id number] SP [id number] Button [employer] Insurance Workers Compensation [id number] Self [id number] [facility] Workers Compensation [id number] Self [id number] [employer] () Workers Compensation [id number] Self [id number] [employer] () Workers Compensation [id number] Self [id number] [facility] Workers Compensation [id number] Self [id number] [place] Claims Workers Compensation [id number] Self [id number] Button [employer] Workers Compensation [id number] Self [id number] [facility] Workers Compensation [id number] Self [id number] Travel[employer] [facility]) Workers Compensation [id number] Self [id number] [employer] () Workers Compensation [id number] Self [id number] [facility] Workers Compensation [id number] Self [id number] [place] Claims Workers Compensation [id number] Self [id number] EXCELLUS BCBS B [id number] [place] [id number] OTHER WORKERS COMPENSATI O [id number] S [id number] EXCELLUS BCBS B [id number] S [place] [id number] [place] Workers Compensation [id number] Self [id number] Button [employer] Workers Compensation Self Alex (WC) Workers Compensation Self [employer] (WC) Workers Compensation Self Travel[employer] (WC) Workers Compensation Self [place] CMS (WC) Workers Compensation Self Travelers (WC) Workers Compensation Self BC BS [place] [facility] B [id number] S [id number] [facility] BLUE SHIELD-O/P [id number] Problems, Conditions, and Diagnoses Code Display Name Description Problem Type Effective Dates Data Source(s) 620817829 Olecranon bursitis Olecranon bursitis Problem 08/2020 12:00:00 AM EST [facility] ([facility]) [id number] Essential hypertension Essential hypertension Problem 01/06/2020 12:00:00 AM EST [facility] ([facility]) K759 Inflammatory liver disease, unspecified Inflammatory liver disease, unspecified Diagnosis 05/18/2020 09:55:00 AM EDT [facility] D649 Anemia, unspecified Anemia, unspecified Diagnosis 0 05/18/2020 09:55:00 AM EDT [facility] E119 Type 2 diabetes mellitus without complic ations Type 2 diabetes mellitus without complications Diagnosis 01/30/2020 11:40:00 AM EST [facility] M7021 Olecranon bursitis, right elbow Olecranon bursitis, ri ght elbow Diagnosis 01/09/2020 08:01:00 AM EST [facility] Results ID Date Data Source [id number] 05/30/2020 09:59:00 AM EDT [facility] Name Value Range Interpretation Code Description Data Pat rce(s) Supporting Document(s) Iron (Fe) 88 ug/dL 65-175 Normal (applies to non-numeric resul ts) [facility] ) Total Iron Binding Capacity 375 ug/dL 250-450 Norm al (applies to non-numeric results) [facility] ([facility], ) Percent Saturation 23.5 % 19.7-50.0 Normal (applies to non-numer ic results) [facility] ([facility], ) 06/01/20 (ThuJun 01) 02:39 PM KAUSHIK MARQUIS NDL Liver enzymes moderately elevated. iron studies show normal iron (no excessive iron) ID Date Data Source [id number] 05/30/2020 09:59:00 AM EDT [facility] Name Value Range Interpretation Code Description Data Pat rce(s) Supporting Document(s) White Blood Count 7.9 10 4.0-10.0 Normal (applies to non-numeri c results) [facility]) Hemoglobin 15.6 g/dL 13.5-17.5 Normal (applies to non-numeric resul ts) [facility]) Red Blood Count 4.72 10 4.30-6.10 Normal (applies to non-numeric results) [facility]) Mean Corpuscular Volume 93.2 fl 80.0-96.0 Normal ( applies to non-numeric results) [facility]) Hematocrit 44.0 % 42.0-52.0 Normal (applies to non-numeric resul ts) [facility]) Red Cell Distribution Width 11.9 % 11.5-14.5 Norm al (applies to non-numeric results) [facility]) Mean Corpuscular HGB Conc 35.5 g/dL 32.0-36.5 Normal (applies to non-numeric results) [facility]) Mean Corpuscular Hemoglobin 33.1 pg 27.0-33.0 Above high normal [facility] ([facility]) Platelet Count, Automated 207 10 150-450 Normal (applies to non-numeric results) [facility]) Lymph % 29.5 % 24.0-44.0 Normal (applies to non-numeric resul ts) [facility]) Neutrophils % 57.5 % 36.0-66.0 Normal (applies to non-numeric re sults) [facility]) Burt % 7.7 % 0.0-5.0 Above high normal [facility]) Baso % 0.6 % 0.0-1.0 Normal (applies to non-numeric resul ts) [facility] Eos % 4.3 % 0.0-3.0 Above high normal [facility] ([facility]) Nucleated Red Blood Cell % 0.0 % 0-0 Normal (applies to n on-numeric results) [facility]) Neutrophils # 4.6 10 1.5-8.5 Normal (applies to non-numeric re sults) [facility]) Immature Granulocyte % 0.4 % 0-3.0 Normal (applies to non-n umeric results) [facility]) Lymph # 2.3 10 1.5-5.0 Normal (applies to non-numeric resul ts) [facility]) Burt # 0.6 10 0.0-0.8 Normal (applies to non-numeric resul ts) [facility] Baso # 0.1 10 0.0-0.2 Normal (applies to non-numeric resul ts) [facility] ([facility]) Eos # 0.3 10 0.0-0.5 Normal (applies to non-numeric resul ts) [facility] ([facility]) ID Date Data Source [id number] 05/30/2020 09:59:00 AM EDT [facility] ([facility]) Name Value Range Interpretation Code Description Data Pat rce(s) Supporting Document(s) Prothrombin Time 12.7 s 11.8-14.0 Normal (applies to non-numeric results) [facility] ([facility]) Inr 0.98 Normal (applies to non-numeric resul ts) [facility]) THERAPUTIC HUMAN INR VALUES INDICATIONS NORMAL RANGES PROPHYLAXIS/TREATMENT OF: VENOUS THROMBOSIS 2.0-3.0 PULMONARY EMBOLISM 2.0-3.0 PREVENTION OF SYSTEMIC EMBOLISM FROM: TISSUE HEART VALVES 2.0-3.0 ACUTE MYOCARDIAL INFARCTION 2.0-3.0 VALVULAR HEART DISEASE 2.0-3.0 ATRIAL FIBRILLATION 2.0-3.0 MECHANICAL VALVES(HIGH RISK) 2.5-3.5 RECURRENT MYOCARDIAL INFARCTION 2.5-3.5 ID Date Data Source [id number] 05/30/2020 09:59:00 AM EDT [facility] ([facility] ) Name Value Range Interpretation Code Description Data Pat rce(s) Supporting Document(s) Alt/SGPT 192 U/L 12-78 Above high normal [facility] ([facility]) Ast/Sgot 87 U/L 7-37 Above high normal [facility] ([facility]) Bilirubin,Total 0.7 mg/dL 0.2-1.0 Normal (applies to non-numeric results) [facility] ([facility]) Alkaline Phosphatase 132 U/L 45-117 Above high normal [facility] ([facility]) Bilirubin,Direct 0.3 mg/dL 0.0-0.2 Above high normal [facility] Total Protein 7.6 GM/DL 6.4-8.2 Normal (applies to non-numeric re sults) [facility] ([facility]) Albumin/Globulin Ratio 1.1 Normal (applies to non-n umeric results) [facility] ([facility]) Albumin 3.9 GM/DL 3.2-5.2 Normal (applies to non-numeric resul ts) [facility] ([facility]) ID Date Data Source [id number] 05/20/2020 08:53:00 AM EDT [facility] Name Value Range Interpretation Code Description Data Pat rce(s) Supporting Document(s) Cancer Ag 19-9 [Units/volume] in Serum or Plasma 31 U/mL 0-35 [facility] Nanostellar Electrochemiluminescen ce Immunoassay (ECLIA)Values obtained with different assay methods or kits cannot beused interchangeably. Results cannot be interpreted as absoluteevidence of the presence or absence of malignant disease. ID Date Data Source [id number] 05/19/2020 01:17:[address] [facility] Value Range Interpretation Code Description Data Pat rce(s) Supporting Document(s) Yedwi-2-zigpsyjogpj.tumor marker [Mass/volume] in Serum or P lasma 8.1 ng/mL 0.0-8.3 [facility] Nanostellar Electrochemiluminescen ce Immunoassay (ECLIA)Values obtained with different assay methods or kits cannot beused interchangeably. Results cannot be interpreted as absoluteevidence of the presence or absence of malignant disease.This test is not interpretable in females. ID Date Data Source [id number] 05/19/2020 01:17:00 PM EDT [facility] Name Value Range Interpretation Code Description Data Pat rce(s) Supporting Document(s) Carcinoembryonic Ag [Mass/volume] in Serum or Plasma 1.8 ng/mL 0.0-4 .7 [facility] Nonsmokers <3.9 Smokers <5.6 [facility] Electrochemiluminescence Immunoassay (ECLIA) Values obtained with different assay methods or kits cannot be used interchangeably. Results cannot be interpreted as absolut e evidence of the presence or absence of malignant disease. ID Date Data Source [id number] 05/18/2020 11:08:00 AM EDT [facility] Name Value Range Interpretation Code Description Data Pat rce(s) Supporting Document(s) Ferritin [Mass/volume] in Serum or Plasma 1120.0 ng/mL 5.0 - 244 H [facility] ID Date Data Source [id number] 05/18/2020 11:03:00 AM EDT [facility] Name Value Range Interpretation Code Description Data Pat rce(s) Supporting Document(s) Protein [Mass/volume] in Serum or Plasma 7.8 G/DL 6.3 - 8.2 [facility] Albumin [Mass/volume] in Serum or Plasma 4.8 G/DL 3.9 - 5.0 [facility] Globulin [Mass/volume] in Serum by calculation 3.0 GM/DL 2.4 - 3.2 [facility] Bilirubin.total [Mass/volume] in Serum or Plasma 1.5 MG/DL 0.2 - 1.3 H [facility] Bilirubin.direct [Mass/volume] in Serum or Plasma 0.4 MG/DL 0.1 - 0. 4 [facility] Bilirubin.indirect [Mass/volume] in Serum or Plasma 1.1 MG/DL 0.2 - 1.1 [facility] Aspartate aminotransferase [Enzymatic activity/volume] in Serum or Plasma 139 U/L 5 - 40 H [facility] Alanine aminotransferase [Enzymatic activity/volume] in Seru m or Plasma 305 U/L 7 - 56 H [facility] Alkaline phosphatase [Enzymatic activity/volume] in Serum or Plasma 111 U/L 38 - 126 [facility] ID Date Data Source [id number] 05/18/2020 11:03:00 AM EDT [facility] Name Value Range Interpretation Code Description Data Pat rce(s) Supporting Document(s) Iron [Mass/volume] in Serum or Plasma 190 UG/DL 42 - 135 H [facility] Iron binding capacity.unsaturated [Mass/volume] in Serum or Plasma 207 UG/DL 112 - 347 [facility] Iron binding capacity [Mass/volume] in Serum or Plasma 397 ug/dL 250 - 450 [facility] Iron saturation [Mass Fraction] in Serum or Plasma 48 % [facility] ID Date Data Source [id number] 01/30/2020 12:39:00 PM EST [facility] Name Value Range Interpretation Code Description Data Pat rce(s) Supporting Document(s) COMPREHENSIVE METABOLIC PANEL [facility] COMPREHENSIVE METABOLIC PANEL Sodium [Moles/volume] in Serum or Plasma 141 mEq/L 134 - 153 [facility] Potassium [Moles/volume] in Serum or Plasma 4.1 mEq/L 3.6 - 5.0 [facility] Chloride [Moles/volume] in Serum or Plasma 103 mEq/L 98 - 107 [facility] Carbon dioxide, total [Moles/volume] in Serum or Plasma 27 MEQ/L 22 - 30 [facility] Glucose [Mass/volume] in Serum or Plasma 97 MG/DL 65 - 110 [facility] BUN 7 MG/DL 7 - 21 [facility] Creatinine [Mass/volume] in Serum or Plasma 0.8 MG/DL 0.7 - 1.5 [facility] BUN/CREAT 9 8 - 27 [facility] al Protein [Mass/volume] in Serum or Plasma 7.3 G/DL 6.3 - 8.2 [facility] Albumin [Mass/volume] in Serum or Plasma 4.5 G/DL 3.9 - 5.0 [facility] Globulin [Mass/volume] in Serum by calculation 2.8 GM/DL 2.4 - 3.2 [facility] A/G RATIO 1.6 0.8 - 2.0 [facility] al Calcium [Mass/volume] in Serum or Plasma 9.4 MG/DL 8.4 - 10.2 [facility] Bilirubin.total [Mass/volume] in Serum or Plasma 1.0 MG/DL 0.2 - 1.3 [facility] Alkaline phosphatase [Enzymatic activity/volume] in Serum or Plasma 129 U/L 38 - 126 H [facility] Aspartate aminotransferase [Enzymatic activity/volume] in Serum or Plasma 197 U/L 5 - 40 H [facility] Alanine aminotransferase [Enzymatic activity/volume] in Seru m or Plasma 367 U/L 7 - 56 H [facility] Anion gap 3 in Serum or Plasma 11.0 mmol/L 8.0 - 16.0 [facility] AGE 59 [facility] GFR >60 mL/min [facility] ital AFR AMER GFR >60 mL/min [facility] Ho spital Male GFR In terprentation 20-49 [...] >32 mL/min Normal ID Date Data Source [id number] 01/30/2020 12:38:[address] [facility] Name Value Range Interpretation Code Description Data Pat rce(s) Supporting Document(s) Bilirubin.direct [Mass/volume] in Serum or Plasma 0.3 MG/DL 0.1 - 0. 4 [facility] ID Date Data Source [id number] 01/30/2020 11:59:[address] [facility] Name Value Range Interpretation Code Description Data Pat rce(s) Supporting Document(s) CBC W/AUTOMATED DIFF [facility] COMPLETE BLOOD COUNT Leukocytes [#/volume] in Blood by Automated count 6.9 10^3/uL 4.2 - 1 1.0 [facility] Erythrocytes [#/volume] in Blood by Automated count 4.59 10^6/uL 4. 50 - 6.30 [facility] Hemoglobin [Mass/volume] in Blood 15.1 g/dL 14.0 - 16.0 [facility] Hematocrit [Volume Fraction] of Blood by Automated count 42.4 % 4 1.0 - 51.0 [facility] Erythrocyte mean corpuscular volume [Entitic volume] by Auto mated count 92.4 fL 80.0 - 94.0 [facility] Erythrocyte mean corpuscular hemoglobin [Entitic mass] by Automated count 32.9 pg 27.0 - 34.0 [facility] Erythrocyte mean corpuscular hemoglobin concentration [Mass/volume] by Automated count 35.6 g/dL 31.0 - 36.0 [facility] Erythrocyte distribution width [Ratio] by Automated count 12.9 % 11.5 - 14.8 [facility] Platelets [#/volume] in Blood by Automated count 183 10^3/uL 150 - 45 0 [facility] Platelet mean volume [Entitic volume] in Blood by Automated count 11.1 fL 7.4 - 10.4 H [facility] Neutrophils/100 leukocytes in Blood by Automated count 51.6 % 37. 0 - 80.0 [facility] Lymphocytes/100 leukocytes in Blood by Manual count 34.9 % 25.0 - 40.0 [facility] Monocytes/100 leukocytes in Blood by Automated count 8.1 % 3.0 - 8.0 H [facility] Eosinophils/100 leukocytes in Blood by Automated count 4.4 % 0.0 - 7.0 [facility] Basophils/100 leukocytes in Blood by Automated count 0.7 % 0.0 - 2.0 [facility] %IG 0.3 % 0[facility]0 - [facility] % 0.0 - 0.0 [facility] al Neutrophils [#/volume] in Blood by Automated count 3.55 10^3/uL 2.00 - 6.90 [facility] Lymphocytes [#/volume] in Blood by Automated count 2.40 10^3/uL 0.60 - 3.40 [facility] Monocytes [#/volume] in Blood by Automated count 0.56 10^3/uL 0.00 - 0.90 [facility] Eosinophils [#/volume] in Blood by Automated count 0.30 10^3/uL 0.00 - 0.70 [facility] Basophils [#/volume] in Blood by Automated count 0.05 10^3/uL 0.00 - 0.20 [facility] #IG 0.02 10^3/uL 0.00 - 0.10 [facility] #NRBC 0.00 10^3/uL 0.00 - 0.00 [facility] MANUAL DIFF NOT INDICATED [facility] RBC MORPH NOT INDICATED [facility] Procedure Vital Signs ID Date Data Source UNK Name Value Range Interpretation Code Description Data Source(s) Body weight 96.617 kg 96.617 kg [facility] ([facility]) Body mass index (BMI) [Ratio] 31.5 kg/m2 31.5 k g/m2 [facility] ([facility]) Body weight 213.00 [lb_av] 213.00 [lb_av] BART T ([facility]) Body height 69 [in_i] 69 [in_i] [facility] ([facility]) 5'9" Diastolic blood pressure 86 mm[Hg] 86 mm[Hg] [facility] ([facility]) Systolic blood pressure 133 mm[Hg] 133 mm[Hg] Raiza DSOUZA ([facility])
[2021-01-19 17:04] VITALS: BP 159/84
--- NOTE | 2021-01-21 20:04 | ED PDOC ---
Post-Departure Follow-Up ct c spine faxed to dr harrison for fu Loreto Tate MD Jan 21, 2021 20:04
== END 2021-01-19 17:09 | disposition home or self-care (01) ==
LOC: M ED 15:18
DX: S00.83XA Contusion of other part of head, initial encounter (principal); W11.XXXA Fall on and from ladder, initial encounter; Y92.018 Other place in single-family (private) house as the place of occurrence of the external cause; E11.9 Type 2 diabetes mellitus without complications; I10 Essential (primary) hypertension; K21.9 Gastro-esophageal reflux disease without esophagitis; Z79.899 Other long term (current) drug therapy; Z79.84 Long term (current) use of oral hypoglycemic drugs

== ENCOUNTER → 2021-06-05 | Outpatient (CLI) | payer BC ==
[~2021-06-05] MED LIST changes: -LABE100T36 PO; +LABE100T5 PO
[2021-06-05 12:22] LABS: BASO # 0.1 10^3/uL (0.0-0.2); BASO % 0.6 % (0.0-1.0); EOS # 0.4 10^3/uL (0.0-0.5); EOS % 4.2 % (0.0-3.0); HEMATOCRIT 43.8 % (42.0-52.0); HEMOGLOBIN 14.6 g/dl (13.5-17.5); LYMPH # 2.5 10^3/uL (1.5-5.0); MEAN CORPUSCULAR HEMOGLOBIN 30.8 pg (27.0-33.0); MEAN CORPUSCULAR HGB CONC 33.3 g/dl (32.0-36.5); MEAN CORPUSCULAR VOLUME 92.4 fl (80.0-96.0); MONO # 0.7 10^3/uL (0.0-0.8); MONO % 7.5 % (2.0-8.0); NEUTROPHILS # 5.1 10^3/uL (1.5-8.5); NEUTROPHILS % 58.4 % (36.0-66.0); PLATELET COUNT, AUTOMATED 249 10^3/uL (150-450); RED BLOOD COUNT 4.74 10^6/uL (4.30-6.10); WHITE BLOOD COUNT 8.7 10^3/uL (4.0-10.0)
[2021-06-05 12:36] LABS: INR 0.98; PROTHROMBIN TIME 13.2 SECONDS (12.5-14.3)
[2021-06-05 13:01] LABS: ALBUMIN 4.1 GM/DL (3.2-5.2); ALT/SGPT 40 U/L (12-78); BILIRUBIN,TOTAL 0.4 MG/DL (0.2-1.0); BLOOD UREA NITROGEN 10 MG/DL (7-18); CALCIUM LEVEL 9.2 MG/DL (8.5-10.1); CARBON DIOXIDE LEVEL 29 MEQ/L (21-32); CHLORIDE LEVEL 104 MEQ/L (98-107); CREATININE FOR GFR 0.67 MG/DL (0.70-1.30); GLOMERULAR FILTRATION RATE > 60.0 (>56); GLUCOSE, FASTING 67 MG/DL (70-100); POTASSIUM SERUM 4.2 MEQ/L (3.5-5.1); SODIUM LEVEL 138 MEQ/L (136-145); TOTAL PROTEIN 7.2 GM/DL (6.4-8.2)
== END ==
LOC: M LAB 10:52
PROVIDERS: ATTEND Internal Medicine Gastroenterology
DX: K70.10 Alcoholic hepatitis without ascites (principal)

== ENCOUNTER → 2021-08-08 | Outpatient (CLI) | payer BC ==
[~2021-08-08] MED LIST changes: +GASTROGRAFIN SOLUTION 30ML (Q9963) As Ordered ONE; +ISOVUE-370 76% 100ML VIAL As Ordered ONE
--- NOTE | 2021-08-08 11:05 | REP ---
INDICATION: ABN WEIGHT LOSS. COMPARISON: Comparison CT study of the abdomen June 11, 2019. TECHNIQUE: Helical scanning is acquired and 3 mm axial images re-formatted. Coronal and sagittal MPR images are generated. The CT contrast enhancement dose is 100 mL of intravenous Isovue 370. Oral contrast was also administered. FINDINGS: Preliminary digital manager quantitative radiograph shows an unremarkable bowel gas pattern. The lung bases are clear on axial CT images. There is mild diffuse fatty infiltration of the liver. There is a peripheral cyst in the left lobe of the liver measuring 1.2 cm in greatest diameter. This was present on the 2019 study although slightly smaller. No other focal liver lesion is seen. The spleen is unremarkable. Normal adrenal glands are seen bilaterally. No abnormality is noted in the pancreas. The gallbladder is intact and unremarkable. The kidneys enhance symmetrically and are morphologically intact bilaterally. No retroperitoneal mass or adenopathy is seen. There is a retroaortic left renal vein noted incidentally as a normal variant. Small and large intestinal bowel loops are unremarkable in the abdomen and pelvis. A normal short appendix is seen along the medial aspect of the cecum. Prostate, seminal vesicles, and urinary bladder are unremarkable. No pelvic mass or adenopathy is seen. No abdominal wall defect is observed. Bone window settings show mild degenerative disc and facet changes in the lumbar spine. No acute bony abnormality. IMPRESSION: No evidence of mass, adenopathy, or other acute abnormality. <Electronically signed by Santi Johnston > 08/08/21 [id number]
== END ==
LOC: M RAD 08:28
PROVIDERS: ATTEND Internal Medicine Gastroenterology
DX: R63.4 Abnormal weight loss (principal); K70.10 Alcoholic hepatitis without ascites; K70.30 Alcoholic cirrhosis of liver without ascites
CPT/HCPCS: 74177; Q9963; Q9967

== ENCOUNTER → 2022-03-10 | Outpatient (CLI) | payer BC ==
[~2022-03-10] MED LIST changes: -GASTROGRAFIN SOLUTION 30ML (Q9963) As Ordered ONE; -ISOVUE-370 76% 100ML VIAL As Ordered ONE; -OMEP-221 PO; +OMEP40CA5 PO
[2022-03-10 11:41] LABS: BASO # 0.1 10^3/uL (0.0-0.2); BASO % 0.7 % (0.0-1.0); EOS # 0.3 10^3/uL (0.0-0.5); EOS % 3.7 % (0.0-3.0); HEMATOCRIT 41.4 % (42.0-52.0); HEMOGLOBIN 14.4 g/dl (13.5-17.5); LYMPH # 2.4 10^3/uL (1.5-5.0); LYMPH % 36.5 % (24.0-44.0); MEAN CORPUSCULAR HEMOGLOBIN 32.4 pg (27.0-33.0); MEAN CORPUSCULAR HGB CONC 34.8 g/dl (32.0-36.5); MEAN CORPUSCULAR VOLUME 93.2 fl (80.0-96.0); MONO # 0.4 10^3/uL (0.0-0.8); MONO % 6.4 % (2.0-8.0); NEUTROPHILS # 3.5 10^3/uL (1.5-8.5); NEUTROPHILS % 52.6 % (36.0-66.0); PLATELET COUNT, AUTOMATED 189 10^3/uL (150-450); RED BLOOD COUNT 4.44 10^6/uL (4.30-6.10); WHITE BLOOD COUNT 6.7 10^3/uL (4.0-10.0)
[2022-03-10 11:54] LABS: INR 0.92; PROTHROMBIN TIME 12.8 SECONDS (12.7-14.5)
[2022-03-10 12:17] LABS: ALT/SGPT 29 U/L (12-78); BILIRUBIN,DIRECT 0.2 MG/DL (0.0-0.2); BILIRUBIN,TOTAL 0.5 MG/DL (0.2-1.0); BLOOD UREA NITROGEN 13 MG/DL (7-18); CALCIUM LEVEL 9.4 MG/DL (8.8-10.2); CARBON DIOXIDE LEVEL 31 MEQ/L (21-32); CHLORIDE LEVEL 106 MEQ/L (98-107); CREATININE FOR GFR 0.87 MG/DL (0.70-1.30); GLOMERULAR FILTRATION RATE > 60.0 (>49); GLUCOSE, FASTING 78 MG/DL (70-100); POTASSIUM SERUM 4.2 MEQ/L (3.5-5.1); SODIUM LEVEL 140 MEQ/L (136-145)
== END ==
LOC: M LAB 10:45
PROVIDERS: ATTEND Internal Medicine Gastroenterology
DX: K70.10 Alcoholic hepatitis without ascites (principal)